=== PATIENT | female | born 1960 | race Caucasian/White ===

== ENCOUNTER 2018-01-23 21:00 | Emergency (ER) | payer OTHER ==
--- NOTE | 2018-01-23 21:14 | ERPHSYRPT ---
- History of Present Illness Time Seen by Provider: 01/23/18 21:13 Source: patient, family Exam Limitations: no limitations Physician History: 57 y/o white female was sitting a chair at cabinet level cleaning her cabinets and fell off her chair and injured left elbow. denies head injury or any other injury. pt is right handed. 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 21:20) Anaphylactic Reaction pt states she is allergic to all steroids Home Medications: Alprazolam 0.5 mg [xanAX 0.5 MG] 0.5 mg PO DAILY 01/23/18 [History] Aspirin 81 gm Chew [Baby Aspirin 81 mg Chew] 81 mg PO DAILY 01/23/18 [ History] Citalopram Hydrobromide 20 mg* [ceLEXa 20 MG] 20 mg PO DAILY 01/23/18 [ History] Fenofibrate Nanocrystallized [Fenofibrate] 145 mg PO DAILY 01/23/18 [History] Levothyroxine Sodium 112 mcg PO DAILY 01/23/18 [History] Loratadine 10 mg PO DAILY 01/23/18 [History] Metformin HCl Xr 500 mg [Glucophage XR 500 MG] 500 mg PO DAILY 01/23/18 [ History] Omeprazole 20 mg PO DAILY 01/23/18 [History] Pravastatin Sodium 20 mg PO DAILY 01/23/18 [History] - Review of Systems Constitutional: No Symptoms, No Fever, No Chills Eyes: No Symptoms, No Discharge, No Eye Pain Ears, Nose, & Throat: No Symptoms, No Ear Pain Respiratory: No Symptoms, No Cough, No Dyspnea, No Stridor, No Wheezing Cardiac: No Symptoms, No Chest Pain, No Palpitations, No Syncope Abdominal/Gastrointestinal: No Symptoms, No Abdominal Pain, No Nausea, No Vomiting Genitourinary Symptoms: No Symptoms, No Dysuria, No Frequency, No Hematuria Musculoskeletal: Injury (left elbow), No Back Pain, No Neck Pain, No Deformity, No Fall Skin: No Symptoms Neurological: No Symptoms Psychological: No Symptoms Endocrine: No Symptoms Hematologic/Lymphatic: No Symptoms Immunological/Allergic: No Symptoms All Other Systems: Reviewed and Negative - Past Medical History Neurological History: No Pertinent History ENT History: No Pertinent History Cardiac History: No Pertinent History Respiratory History: No Pertinent History Endocrine Medical History: No Pertinent History Musculoskeletal History: No Pertinent History GI Medical History: No Pertinent History History: No Pertinent History Psycho-Social History: No Pertinent History Female Reproductive Disorders: No Pertinent History - Nursing Vital Signs Nursing Vital Signs: Initial Vital Signs Temperature 97.5 F 01/23/18 21:07 Pulse Rate 96 H 01/23/18 21:07 Respiratory Rate 18 01/23/18 21:07 Blood Pressure 139/77 01/23/18 21:07 O2 Sat by Pulse Oximetry 96 01/23/18 21:07 Pain Scale Pain Intensity 10 - Paz Coma Score Best Eye Response ([place]): (4) open spontaneously Best Verbal Response ([place]): (5) oriented Best Motor Response ([place]): (6) obeys commands Paz Total: 15 - Physical Exam General Appearance: no apparent distress, alert, anxiety Head Injury: no evidence of injury Eye Exam: PERRL/EOMI, eyes nml inspection ENT Exam: airway nml, No evidence of ENT injury, No dental injury Neck Exam: supple, trachea midline, full range of motion, normal alignment, normal inspection Respiratory/Chest Exam: normal breath sounds, No chest tenderness, No respiratory distress, No rhonchi, No wheezing, No accessory muscle use Cardiovascular Exam: normal heart sounds, regular rate/rhythm Gastrointestinal Exam: soft, No tenderness Rectal Exam: not done Back Exam: normal inspection, normal range of motion Extremity Exam: normal inspection, normal range of motion, bony point tenderness (left elbow) Neurologic Exam: alert, oriented x 3, cooperative, 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 as tested, normal mood/affect, nml cerebellar function, nml station & gait Skin Exam: normal color, warm, dry SpO2 Interpretation: normal Oxygen Delivery: Room Air - Course Nursing assessment & vital signs reviewed: Yes Ordered Tests: Active Orders 24 hr Category Date Time Status Cold Application STAT Care 01/23/18 21:06 Active ELBOW (MINIMUM 3 VIEWS) Stat Exams 01/23/18 21:37 Taken Lab/Rad Data: i read left elbow xray- no acute fx or dislocation - Progress Counseled pt/family regarding: diagnosis, need for follow-up, rad results - Departure Time of Disposition: 22:19 Departure Disposition: Home Clinical Impression: Elbow contusion Condition: Stable Critical Care Time: No Referrals: ESTEVAN ZURITA [Primary Care Provider] - Additional Instructions: ice pack to site 3 times daily for 3 days. use tylenol and ibuprofen for pain. follow up with primary doctor for persistent symptoms
[2018-01-23 22:30] VITALS: BP 128/66; PULSE 79; O2SAT 95
--- NOTE | 2018-01-24 08:35 | XRAY ---
Indication: Pain following fall. Comparison: None 3 views of the left elbow demonstrates mild posterior soft tissue swelling. No other bony, articular, or soft tissue abnormalities.
== END 2018-01-23 22:29 | disposition home or self-care (01) ==
LOC: ED 21:00
DX: S50.02XA Contusion of left elbow, initial encounter (principal); Z79.899 Other long term (current) drug therapy; W07.XXXA Fall from chair, initial encounter; Y93.E9 Activity, other interior property and clothing maintenance; Y92.009 Unspecified place in unspecified non-institutional (private) residence as the place of occurrence of the external cause
CPT/HCPCS: 73080; 99283

== ENCOUNTER 2020-08-03 14:54 | Emergency (ER) | payer OTHER ==
--- NOTE | 2020-08-03 15:11 | ERPHSYRPT ---
- History of Present Illness Time Seen by Provider: 08/03/20 15:11 Source: patient Exam Limitations: no limitations Patient Subjective Stated Complaint: pt here for foot pain since last night,no injury Triage Nursing Assessment: pt alert, arrived per wc, face mask in place,resp easy, skin w/d/p. has some swelling to right outer aspect of foot ,has strong pedal pulse, full range of motion Physician History: This is a 60-year-old white female who has a history of gastroesophageal reflux disease, diabetes, hypothyroidism and noticed that she was having some pain in her right foot and right ankle yesterday evening. When she woke up this morning there was "bruising" and swelling of her right foot and ankle. In addition, she states that the pain was worse than yesterday and was having trouble walking. She did not recall falling or injuring herself. The patient has no bleeding or clotting disorder. Patient states she is allergic to all steroids. Method of Injury: unknown Quality: aching Severity of Pain-Max: moderate Severity of Pain-Current: mild Lower Extremities Pain: foot: right, ankle: right Modifying Factors: Improves With: movement Associated Symptoms: other (Hurts to bear weight but is able to do so) Allergies/Adverse Reactions: Androgenic Anabolic Steroid Allergy (Severe, Verified 08/03/20 15:05) Anaphylactic Reaction pt states she is allergic to all steroids Home Medications: Alprazolam 0.5 mg [xanAX 0.5 MG] 0.5 mg PO DAILY 01/23/18 [History] Aspirin 81 gm Chew [Baby Aspirin 81 mg Chew] 81 mg PO DAILY 01/23/18 [History] Citalopram Hydrobromide 20 mg* [ceLEXa 20 MG] 20 mg PO DAILY 01/23/18 [History] Fenofibrate Nanocrystallized [Fenofibrate] 145 mg PO DAILY 01/23/18 [History] Levothyroxine Sodium 112 mcg PO DAILY 01/23/18 [History] Loratadine 10 mg PO DAILY 01/23/18 [History] Metformin HCl Xr 500 mg [Glucophage XR 500 MG] 500 mg PO DAILY 01/23/18 [History] Omeprazole 20 mg PO DAILY 01/23/18 [History] Pravastatin Sodium 20 mg PO DAILY 01/23/18 [History] Hx Tetanus, Diphtheria Vaccination/Date Given: Yes Hx Influenza Vaccination/Date Given: Yes Hx Pneumococcal Vaccination/Date Given: Yes Immunizations Up to Date: Yes Travel Risk - International Travel Have you traveled outside of the country in past 3 weeks: No - Coronavirus Screening Are you exhibiting any of the following symptoms?: No Close contact with a COVID-19 positive Pt in past 14-21 Days: No - Review of Systems Constitutional: No Symptoms Eyes: No Symptoms Ears, Nose, & Throat: No Symptoms Respiratory: No Symptoms Cardiac: No Symptoms Abdominal/Gastrointestinal: No Symptoms Genitourinary Symptoms: No Symptoms Musculoskeletal: Joint Pain (Right foot and ankle), Joint Swelling (Right foot and ankle) Skin: Other Neurological: No Symptoms Psychological: No Symptoms Endocrine: No Symptoms Hematologic/Lymphatic: No Symptoms Immunological/Allergic: No Symptoms All Other Systems: Reviewed and Negative - Past Medical History Pertinent Past Medical History: Yes Neurological History: No Pertinent History ENT History: No Pertinent History Cardiac History: No Pertinent History Respiratory History: COPD Endocrine Medical History: No Pertinent History Musculoskeletal History: No Pertinent History GI Medical History: Ulcer History: No Pertinent History Psycho-Social History: No Pertinent History Female Reproductive Disorders: No Pertinent History - Past Surgical History Past Surgical History: Yes Gastrointestinal: Cholecystectomy Female Surgical History: Tubal Ligation Other Surgical History: oral surgery as a child - Social History Smoking Status: Current every day smoker How long have you smoked: 34 Exposure to second hand smoke: Yes Drug Use: none Patient Lives Alone: No - Female History Hx Last Menstrual Period: post Hx Now: No - Nursing Vital Signs Nursing Vital Signs: Initial Vital Signs Temperature 98.5 F 08/03/20 14:54 Pulse Rate 78 08/03/20 14:54 Respiratory Rate 18 08/03/20 14:54 Blood Pressure 174/71 08/03/20 14:54 O2 Sat by Pulse Oximetry 96 08/03/20 14:54 Pain Scale Pain Intensity 5 - Physical Exam General Appearance: no apparent distress, alert, anxiety Eyes, Ears, Nose, Throat Exam: normal ENT inspection, moist mucous membranes Neck Exam: normal inspection, non-tender, supple, full range of motion Cardiovascular/Respiratory Exam: chest non-tender, no respiratory distress Gastrointestinal/Abdominal Exam: non-tender Back Exam: normal inspection, normal range of motion, No CVA tenderness, No vertebral tenderness Hips Exam: bilateral: non-tender, normal inspection, normal range of motion, no evidence of injury Legs Exam: bilateral leg: non-tender, normal inspection, normal range of motion, no evidence of injury Knees Exam: bilateral knee: non-tender, normal inspection, normal range of motion, no evidence of injury Ankle Exam: right ankle: bone tenderness, pain, soft tissue tenderness, swelling, other (A few irregularly bordered reddened more than purple patches of rash rather than typical ecchymosis present), left ankle: non-tender, normal inspection, normal range of motion, no evidence of injury Foot Exam: right foot: bone tenderness, pain, soft tissue tenderness, swelling, other (Similar patches of rash as described above on the Achilles tendon area and dorsal aspect of the patient's right foot), left foot: non-tender, normal inspection, normal range of motion, no evidence of injury Neuro/Tendon Exam: normal sensation, normal motor functions, normal tendon functions, responds to pain, no evidence tendon injury Mental Status Exam: alert, oriented x 3, cooperative Skin Exam: rash (As described above) SpO2 Interpretation: normal SpO2: 96 O2 Delivery: Room Air Ordered Tests: Active Orders 24 hr Category Date Time Status ANKLE (3 VIEWS) Stat Exams 08/03/20 15:12 Taken FOOT (MINIMUM 3 VIEWS) Stat Exams 08/03/20 15:12 Taken CBC W DIFF Stat Lab 08/03/20 15:59 Completed CMP Stat Lab 08/03/20 15:59 Completed ESR [Erythrocyte Sedimentation Rate] Stat Lab 08/03/20 16:00 Completed PROTIME WITH INR Stat Lab 08/03/20 15:59 Completed Lab/Rad Data: Laboratory Result Diagrams 08/03/20 15:59 08/03/20 15:59 Laboratory Results 08/03/20 08/03/20 08/03/20 Range/Units 16:00 15:59 15:59 WBC (4.0-10.5) K/mm3 RBC (4.1-5.4) M/mm3 Hgb (12.0-16.0) gm/dl Hct (35-47) % MCV (78-100) fl MCH (26-32) pg MCHC (32-36) g/dl RDW (11.5-14.0) % Plt Count (150-450) K/mm3 MPV (7.5-11.0) fl Gran % (36.0-66.0) % Eos # (Auto) (0-0.5) Absolute Lymphs (auto) (1.0-4.6) Absolute Monos (auto) (0.0-1.3) Lymphocytes % (24.0-44.0) % Monocytes % (0.0-12.0) % Eosinophils % (0.00-5.0) % Basophils % (0.0-0.4) % Absolute Granulocytes (1.4-6.9) Basophils # (0-0.4) ESR 31 H (0-20) mm/hr PT 14.2 H (9.95-12.35) SECONDS INR 1.25 (0.8-3.0) Sodium 137 (137-145) mmol/L Potassium 4.4 (3.5-5.1) mmol/L Chloride 105 (98-107) mmol/L Carbon Dioxide 27 (22-30) mmol/L Anion Gap 9.0 (5-15) MEQ/L BUN 7 (7-17) mg/dL Creatinine 0.67 (0.52-1.04) mg/dL Estimated GFR > 60.0 ML/MIN Glucose 77 (74-106) mg/dL Calcium 9.3 (8.4-10.2) mg/dL Total Bilirubin 0.40 (0.2-1.3) mg/dL AST 85 H (14-36) U/L ALT 31 (0-35) U/L Alkaline Phosphatase 134 H (38-126) U/L Serum Total Protein 8.0 (6.3-8.2) g/dL Albumin 4.4 (3.5-5.0) g/dL 08/03/20 Range/Units 15:59 WBC 8.6 (4.0-10.5) K/mm3 RBC 4.68 (4.1-5.4) M/mm3 Hgb 13.5 (12.0-16.0) gm/dl Hct 42.9 (35-47) % MCV 91.7 (78-100) fl MCH 28.8 (26-32) pg MCHC 31.5 L (32-36) g/dl RDW 13.7 (11.5-14.0) % Plt Count 221 (150-450) K/mm3 MPV 8.6 (7.5-11.0) fl Gran % 55.2 (36.0-66.0) % Eos # (Auto) 0.63 H (0-0.5) Absolute Lymphs (auto) 2.73 (1.0-4.6) Absolute Monos (auto) 0.48 (0.0-1.3) Lymphocytes % 31.6 (24.0-44.0) % Monocytes % 5.6 (0.0-12.0) % Eosinophils % 7.3 H (0.00-5.0) % Basophils % 0.3 (0.0-0.4) % Absolute Granulocytes 4.77 (1.4-6.9) Basophils # 0.03 (0-0.4) ESR (0-20) mm/hr PT (9.95-12.35) SECONDS INR (0.8-3.0) Sodium (137-145) mmol/L Potassium (3.5-5.1) mmol/L Chloride (98-107) mmol/L Carbon Dioxide (22-30) mmol/L Anion Gap (5-15) MEQ/L BUN (7-17) mg/dL Creatinine (0.52-1.04) mg/dL Estimated GFR ML/MIN Glucose (74-106) mg/dL Calcium (8.4-10.2) mg/dL Total Bilirubin (0.2-1.3) mg/dL AST (14-36) U/L ALT (0-35) U/L Alkaline Phosphatase (38-126) U/L Serum Total Protein (6.3-8.2) g/dL Albumin (3.5-5.0) g/dL - Progress Progress: pain not gone completely, re-examined Progress Note: 08/03/20 16:46 X-ray of the right foot reveals no acute fracture or dislocation X-ray of the right ankle reveals no acute fracture or dislocation. Counseled pt/family regarding: lab results, diagnosis, need for follow-up, rad results - Departure Departure Disposition: Home Clinical Impression: Pain in joint involving right ankle and foot Condition: Stable Critical Care Time: No Referrals: ESTEVAN ZURITA [Primary Care Provider] - Additional Instructions: Take your medications as prescribed. Use ibuprofen for pain control. Follow-up with Dr. Bundy in the foot clinic here at [facility] for further management. Ice pack to area 2-3 times a day over the weekend.
[2020-08-03 16:15] LABS: Absolute Neutrophil Ct (ANC) 4.77 (1.4-6.9); BASOPHIL % 0.3 % (0.0-0.4); Basophil (Absolute #) 0.03 (0-0.4); Eosinophil % 7.3 % (0.00-5.0); Eosinophil (Absolute #) 0.63 (0-0.5); Hematocrit 42.9 % (35-47); Hemoglobin 13.5 gm/dl (12.0-16.0); Lymphocyte (Absolute #) 2.73 (1.0-4.6); Lymphocytes % 31.6 % (24.0-44.0); Mean Cell Volume 91.7 fl (78-100); Mean Corpuscular Hemoglobin 28.8 pg (26-32); Mean Corpuscular Hgb Concent. 31.5 g/dl (32-36); Mean Platelet Volume 8.6 fl (7.5-11.0); Monocyte (Absolute #) 0.48 (0.0-1.3); Monocytes % 5.6 % (0.0-12.0); Neutrophil % 55.2 % (36.0-66.0); Platelet Count 221 K/mm3 (150-450); Red Blood Count 4.68 M/mm3 (4.1-5.4); Red Cell Distribution Width 13.7 % (11.5-14.0); White Blood Count 8.6 K/mm3 (4.0-10.5)
[2020-08-03 16:28] LABS: INR 1.25 (0.8-3.0); PROTIME 14.2 SECONDS (9.95-12.35)
[2020-08-03 16:33] LABS: ALBUMIN 4.4 g/dL (3.5-5.0); ALKALINE PHOSPHATASE 134 U/L (38-126); BLOOD UREA NITROGEN 7 mg/dL (7-17); CHLORIDE 105 mmol/L (98-107); Calcium 9.3 mg/dL (8.4-10.2); Carbon Dioxide 27 mmol/L (22-30); Creatinine 1 0.67 mg/dL (0.52-1.04); EST GLOMERULAR FILTRATION RATE > 60.0 ML/MIN; Glucose 77 mg/dL (74-106); Potassium 4.4 mmol/L (3.5-5.1); SGOT/AST 85 U/L (14-36); SGPT/ALT 31 U/L (0-35); SODIUM 137 mmol/L (137-145)
[2020-08-03] MEDS ORDERED: TORAdol 30 mg Injection IM ONE (16:48)
[2020-08-03] MEDS ORDERED: TORAdol 30 mg Injection ONE (17:14)
[2020-08-03 17:42] VITALS: BP 158/88; PULSE 72; O2SAT 97
--- NOTE | 2020-08-03 18:42 | XRAY ---
Indication: Pain. No known injury. Comparison: None 3 nonweightbearing views right foot demonstrates tiny posterior heel spur. No other bony, articular, or soft tissue abnormalities.
--- NOTE | 2020-08-03 18:44 | XRAY ---
Indication: Pain. No known injury. Comparison: None 3 view right ankle demonstrates tiny medial malleolus tip well-circumscribed ossification either developmental versus old injury. Also tiny posterior heel spur. No other bony, articular, or soft tissue abnormalities.
== END 2020-08-03 17:30 | disposition home or self-care (01) ==
LOC: ED 14:54
DX: M25.571 Pain in right ankle and joints of right foot (principal); K21.9 Gastro-esophageal reflux disease without esophagitis; E11.9 Type 2 diabetes mellitus without complications; E03.9 Hypothyroidism, unspecified; Z79.899 Other long term (current) drug therapy; Z79.84 Long term (current) use of oral hypoglycemic drugs; M25.471 Effusion, right ankle
CPT/HCPCS: 36415; 73610; 73630; 80053; 85025; 85610; 85652; 96372; 99284; J1885

== ENCOUNTER 2021-05-13 10:05 | Inpatient (IN) | payer OTHER ==
[2021-05-13] MEDS ORDERED: Zofran 4 MG/2 ML VIAL IV ONE (10:40)
[2021-05-13] MEDS ORDERED: Sodium Chloride 0.9% 1000 ML 1,000 ML IV STA (10:40)
--- NOTE | 2021-05-13 10:49 | ERPHSYRPT ---
- History of Present Illness Time Seen by Provider: 05/13/21 10:38 Historian: patient Exam Limitations: no limitations Patient Subjective Stated Complaint: Pt states that for the past week she has been dizzy, N&V, diarrhea, body fatigue, and headache Triage Nursing Assessment: Pt brought to the ER by her daughter, hypertensive, denies pain, N&V, diarrhea, headache, cough with whitish/yellow mucus, dizzy, felt like she was going to pass out this morning, skin pale, pulses normal Physician History: 60 years old female presented in the ER with multiple complaints. Patient reports having sinus congestion for almost 1 week with minimal clear productive cough not much change from her chronic smoker cough and having generalized abdominal cramping with associated multiple episodes of loose stool. Does have some nausea but no vomiting. Patient is feeling weak fatigued and tired, getting dizzy and lightheaded on standing with feeling as if she is going to pass out earlier today. No numbness tingling or weakness. Subjective feeling of fever and chills Timing/Duration: week(s) (1), gradual onset, worse Activities at Onset: rest Quality: cramping Abdominal Pain Onset Location: generalized abdomen Pain Radiation: no radiation Severity of Pain-Max: moderate Severity of Pain-Current: mild Modifying Factors: Improves With: nothing Associated Symptoms: diarrhea, fatigue, headache, nausea, weakness, No shortness of breath Allergies/Adverse Reactions: Androgenic Anabolic Steroid Allergy (Severe, Verified 05/13/21 10:20) Anaphylactic Reaction pt states she is allergic to all steroids Home Medications: ALPRAZolam 0.5 MG [xanAX 0.5 MG] 0.5 mg PO DAILY 01/23/18 [History] Aspirin 81 gm Chew [Baby Aspirin 81 mg Chew] 81 mg PO DAILY 01/23/18 [History] Citalopram Hydrobromide 20 mg* [ceLEXa 20 MG] 20 mg PO DAILY 01/23/18 [History] Fenofibrate Nanocrystallized [Fenofibrate] 145 mg PO DAILY 01/23/18 [History] Levothyroxine Sodium 112 mcg PO DAILY 01/23/18 [History] Loratadine 10 mg PO DAILY 01/23/18 [History] Metformin HCl Xr 500 mg [Glucophage XR 500 MG] 500 mg PO DAILY 01/23/18 [History] Omeprazole 20 mg PO DAILY 01/23/18 [History] Pravastatin Sodium 20 mg PO DAILY 01/23/18 [History] Hx Tetanus, Diphtheria Vaccination/Date Given: Yes Hx Influenza Vaccination/Date Given: Yes Hx Pneumococcal Vaccination/Date Given: Yes Travel Risk - International Travel Have you traveled outside of the country in past 3 weeks: No - Coronavirus Screening Are you exhibiting any of the following symptoms?: Yes Symptoms: Cough: New Onset, Vomiting/Diarrhea, Headaches/Body Aches/Fatigue Close contact with a COVID-19 positive Pt in past 14-21 Days: No - Vaccine Status Have you recieved a Covid-19 vaccination: No - Review of Systems Constitutional: Fever, Chills, Fatigue, Weakness Eyes: No Symptoms Ears, Nose, & Throat: Nose Congestion, Sinus Drainage Respiratory: Cough Cardiac: No Symptoms Abdominal/Gastrointestinal: Abdominal Pain, Nausea, Diarrhea Genitourinary Symptoms: No Symptoms Musculoskeletal: Myalgias Skin: No Symptoms Neurological: Dizziness Psychological: No Symptoms Endocrine: No Symptoms Hematologic/Lymphatic: No Symptoms Immunological/Allergic: No Symptoms - Past Medical History Pertinent Past Medical History: Yes Neurological History: No Pertinent History ENT History: No Pertinent History Cardiac History: No Pertinent History Respiratory History: COPD Endocrine Medical History: No Pertinent History Musculoskeletal History: No Pertinent History GI Medical History: Ulcer History: No Pertinent History Psycho-Social History: No Pertinent History Female Reproductive Disorders: No Pertinent History - Past Surgical History Past Surgical History: Yes Gastrointestinal: Cholecystectomy Female Surgical History: Tubal Ligation Other Surgical History: oral surgery as a child - Social History Smoking Status: Current every day smoker How long have you smoked: 34 Exposure to second hand smoke: Yes Drug Use: none Patient Lives Alone: No - Female History Hx Now: No - Nursing Vital Signs Nursing Vital Signs: Initial Vital Signs Temperature 97.5 F 05/13/21 10:11 Pulse Rate 77 05/13/21 10:11 Blood Pressure 142/60 05/13/21 10:11 O2 Sat by Pulse Oximetry 100 05/13/21 10:11 Pain Scale Pain Intensity 0 - Physical Exam General Appearance: no apparent distress, alert Eye Exam: PERRL/EOMI, eyes nml inspection Ears, Nose, Throat Exam: TMs normal, pharyngeal erythema Neck Exam: normal inspection, supple, full range of motion Respiratory Exam: normal breath sounds, lungs clear Cardiovascular Exam: regular rate/rhythm, normal heart sounds Gastrointestinal/Abdomen Exam: soft, tenderness (Generalized mild with no guarding or rebound), No normal bowel sounds (Hyperactive) Back Exam: normal inspection, normal range of motion, No CVA tenderness Extremity Exam: normal inspection, normal range of motion Skin Exam: normal color SpO2 Interpretation: normal SpO2: 100 O2 Delivery: Room Air - Course EKG Interpreted by Me: RATE (77), Sinus Rhythm, NORMAL AXIS, NORMAL INTERVALS, Other (Mild ST depression in anterolateral) Ordered Tests: Active Orders 24 hr Category Date Time Status Label Machine Operator STAT Care 05/13/21 11:48 Active IV Insertion STAT Care 05/13/21 10:40 Active NPO (ED) STAT Care 05/13/21 10:40 Active ABDOMEN AND PELVIS W/0 CONTRAS [CT] Stat Exams 05/13/21 10:40 Completed CHEST 1 VIEW (PORTABLE) Stat Exams 05/13/21 10:45 Completed BLOOD CULTURE Stat Lab 05/13/21 11:02 Received CBC W DIFF Stat Lab 05/13/21 11:02 Completed CMP Stat Lab 05/13/21 11:02 Completed CULTURE,URINE Stat Lab 05/13/21 11:33 Received FECAL OCCULT BLOOD - SCREENING Stat Lab 05/13/21 11:48 Ordered LIPASE Stat Lab 05/13/21 11:02 Completed Lactic Acid Stat Lab 05/13/21 11:16 Completed Lactic Acid Stat Lab 05/13/21 13:20 Completed Manual Differential NC Stat Lab 05/13/21 11:02 Completed TROPONIN Q3H Lab 05/13/21 11:02 Completed TROPONIN Q3H Lab 05/13/21 13:41 Received TROPONIN Q3H Lab 05/13/21 16:45 Ordered TROPONIN Q3H Lab 05/13/21 19:45 Ordered TROPONIN Q3H Lab 05/13/21 22:45 Ordered UA W/RFX UR CULTURE Stat Lab 05/13/21 11:33 Completed Transfer Order Routine Transfer 05/13/21 Ordered Medication Summary Generic Name Dose Route Start Last Admin Trade Name Freq PRN Reason Stop Dose Admin Pantoprazole Sodium 80 mg/ 500 mls @ 50 mls/hr 05/13/21 12:00 05/13/21 12:38 Sodium Chloride IV 06/12/21 11:59 50 ml/hr .Q10H JEANCARLOS 50 mls/hr Administration Discontinued Medications Generic Name Dose Route Start Last Admin Trade Name Iman PRN Reason Stop Dose Admin Sodium Chloride 1,000 mls @ 999 mls/hr 05/13/21 10:40 05/13/21 12:37 Sodium Chloride 0.9% 1000 Ml IV 05/13/21 11:40 Infused .Q1H1M STA Infusion Sodium Chloride Confirm 05/13/21 11:31 Sodium Chloride 0.9% 1000 Ml Administered 05/13/21 11:32 Dose 1,000 mls @ ud .ROUTE .STK-MED ONE Ondansetron HCl 4 mg 05/13/21 10:40 05/13/21 11:33 Ondansetron Hcl 4 Mg/2 Ml Vial IV 05/13/21 10:41 4 mg STAT ONE Administration Ondansetron HCl Confirm 05/13/21 11:30 Ondansetron Hcl 4 Mg/2 Ml Vial Administered 05/13/21 11:31 Dose 4 mg .ROUTE .STK-MED ONE Pantoprazole Sodium 40 mg 05/13/21 11:47 05/13/21 12:34 Pantoprazole 40 Mg Vial IV 05/13/21 11:48 40 mg STAT ONE Administration Pantoprazole Sodium Confirm 05/13/21 12:32 Pantoprazole 40 Mg Vial Administered 05/13/21 12:33 Dose 40 mg IV .STK-MED ONE Lab/Rad Data: Laboratory Result Diagrams 05/13/21 11:02 05/13/21 11:02 Laboratory Results 05/13/21 05/13/21 05/13/21 Range/Units 13:20 12:37 11:33 WBC (4.0-10.5) K/mm3 RBC (4.1-5.4) M/mm3 Hgb (12.0-16.0) gm/dl Hct (35-47) % MCV (78-100) fl MCH (26-32) pg MCHC (32-36) g/dl RDW (11.5-14.0) % Plt Count (150-450) K/mm3 MPV (7.5-11.0) fl Sodium (137-145) mmol/L Potassium (3.5-5.1) mmol/L Chloride (98-107) mmol/L Carbon Dioxide (22-30) mmol/L Anion Gap (5-15) MEQ/L BUN (7-17) mg/dL Creatinine (0.52-1.04) mg/dL Estimated GFR ML/MIN Glucose (74-106) mg/dL Lactic Acid 1.1 (0.4-2.0) Calcium (8.4-10.2) mg/dL Total Bilirubin (0.2-1.3) mg/dL AST (14-36) U/L ALT (0-35) U/L Alkaline Phosphatase (38-126) U/L Troponin I (0.000-0.034) ng/mL Serum Total Protein (6.3-8.2) g/dL Albumin (3.5-5.0) g/dL Lipase (23-300) U/L Urine Color GRACE (YELLOW) Urine Appearance SLIGHTLY CLOUDY (CLEAR) Urine pH 5.0 (5-6) Ur Specific Porter 1.021 (1.005-1.025) Urine Protein 30 (Negative) Urine Ketones NEGATIVE (NEGATIVE) Urine Blood NEGATIVE (0-5) Power/ul Urine Nitrite NEGATIVE (NEGATIVE) Urine Bilirubin SMALL (NEGATIVE) Urine Urobilinogen 4 (0-1) mg/dL Ur Leukocyte Esterase TRACE (NEGATIVE) Urine WBC (Auto) 11-15 (0-5) /HPF Urine RBC (Auto) NONE (0-2) /HPF U Hyaline Cast (Auto) 3-5 (0-2) /LPF U Epithel Cells (Auto) FEW (FEW) /HPF Urine Bacteria (Auto) FEW (NEGATIVE) /HPF Calcium Oxalate Crystal 6-10 (NEGATIVE) /HPF Urine Mucus (Auto) MANY (NEGATIVE) /HPF Urine Culture Reflexed YES (NO) Urine Glucose NEGATIVE (NEGATIVE) mg/dL Influenza Type A Ag NEGATIVE (NEGATIVE) Influenza Type B Ag NEGATIVE (NEGATIVE) RSV (PCR) NEGATIVE (Negative) SARS-CoV-2 (PCR) POSITIVE A (NEGATIVE) 05/13/21 05/13/21 05/13/21 Range/Units 11:16 11:02 11:02 WBC (4.0-10.5) K/mm3 RBC (4.1-5.4) M/mm3 Hgb (12.0-16.0) gm/dl Hct (35-47) % MCV (78-100) fl MCH (26-32) pg MCHC (32-36) g/dl RDW (11.5-14.0) % Plt Count (150-450) K/mm3 MPV (7.5-11.0) fl Sodium 139 (137-145) mmol/L Potassium 3.5 (3.5-5.1) mmol/L Chloride 105 (98-107) mmol/L Carbon Dioxide 23 (22-30) mmol/L Anion Gap 15.2 H (5-15) MEQ/L BUN 5 L (7-17) mg/dL Creatinine 0.67 (0.52-1.04) mg/dL Estimated GFR > 60.0 ML/MIN Glucose 130 H (74-106) mg/dL Lactic Acid 3.2 H (0.4-2.0) Calcium 8.4 (8.4-10.2) mg/dL Total Bilirubin 1.10 (0.2-1.3) mg/dL AST 45 H (14-36) U/L ALT 13 (0-35) U/L Alkaline Phosphatase 118 (38-126) U/L Troponin I < 0.012 (0.000-0.034) ng/mL Serum Total Protein 7.6 (6.3-8.2) g/dL Albumin 3.9 (3.5-5.0) g/dL Lipase 95 (23-300) U/L Urine Color (YELLOW) Urine Appearance (CLEAR) Urine pH (5-6) Ur Specific Porter (1.005-1.025) Urine Protein (Negative) Urine Ketones (NEGATIVE) Urine Blood (0-5) Power/ul Urine Nitrite (NEGATIVE) Urine Bilirubin (NEGATIVE) Urine Urobilinogen (0-1) mg/dL Ur Leukocyte Esterase (NEGATIVE) Urine WBC (Auto) (0-5) /HPF Urine RBC (Auto) (0-2) /HPF U Hyaline Cast (Auto) (0-2) /LPF U Epithel Cells (Auto) (FEW) /HPF Urine Bacteria (Auto) (NEGATIVE) /HPF Calcium Oxalate Crystal (NEGATIVE) /HPF Urine Mucus (Auto) (NEGATIVE) /HPF Urine Culture Reflexed (NO) Urine Glucose (NEGATIVE) mg/dL Influenza Type A Ag (NEGATIVE) Influenza Type B Ag (NEGATIVE) RSV (PCR) (Negative) SARS-CoV-2 (PCR) (NEGATIVE) 05/13/21 Range/Units 11:02 WBC 6.3 (4.0-10.5) K/mm3 RBC 3.69 L (4.1-5.4) M/mm3 Hgb 6.0 L* (12.0-16.0) gm/dl Hct 24.1 L (35-47) % MCV 65.3 L (78-100) fl MCH 16.3 L (26-32) pg MCHC 24.9 L (32-36) g/dl RDW 20.1 H (11.5-14.0) % Plt Count 289 (150-450) K/mm3 MPV 9.5 (7.5-11.0) fl Sodium (137-145) mmol/L Potassium (3.5-5.1) mmol/L Chloride (98-107) mmol/L Carbon Dioxide (22-30) mmol/L Anion Gap (5-15) MEQ/L BUN (7-17) mg/dL Creatinine (0.52-1.04) mg/dL Estimated GFR ML/MIN Glucose (74-106) mg/dL Lactic Acid (0.4-2.0) Calcium (8.4-10.2) mg/dL Total Bilirubin (0.2-1.3) mg/dL AST (14-36) U/L ALT (0-35) U/L Alkaline Phosphatase (38-126) U/L Troponin I (0.000-0.034) ng/mL Serum Total Protein (6.3-8.2) g/dL Albumin (3.5-5.0) g/dL Lipase (23-300) U/L Urine Color (YELLOW) Urine Appearance (CLEAR) Urine pH (5-6) Ur Specific Porter (1.005-1.025) Urine Protein (Negative) Urine Ketones (NEGATIVE) Urine Blood (0-5) Power/ul Urine Nitrite (NEGATIVE) Urine Bilirubin (NEGATIVE) Urine Urobilinogen (0-1) mg/dL Ur Leukocyte Esterase (NEGATIVE) Urine WBC (Auto) (0-5) /HPF Urine RBC (Auto) (0-2) /HPF U Hyaline Cast (Auto) (0-2) /LPF U Epithel Cells (Auto) (FEW) /HPF Urine Bacteria (Auto) (NEGATIVE) /HPF Calcium Oxalate Crystal (NEGATIVE) /HPF Urine Mucus (Auto) (NEGATIVE) /HPF Urine Culture Reflexed (NO) Urine Glucose (NEGATIVE) mg/dL Influenza Type A Ag (NEGATIVE) Influenza Type B Ag (NEGATIVE) RSV (PCR) (Negative) SARS-CoV-2 (PCR) (NEGATIVE) - Progress Progress: improved, re-examined Progress Note: 05/13/21 12:24 60 years old is evaluated for generalized weakness fatigue, sinus congestion, cough, abdominal pain with diarrhea. Later on patient did report having dark stool which she thinks is probably secondary to Pepto-Bismol use. Denies any allison blood per rectal. No hematemesis. Heart rate in 80s and blood pressure in 130s. She does not seem to be in any distress. Work-up showed hemoglobin of 6 with a drop from baseline 13. Stool occult is pending. Chemistry lactate of 3.2 and normal initial troponin. EKG showed some ST depressions but no elevations. I believe her dizziness, lightheadedness and near syncope and also EKG changes are secondary to blood loss anemia causing strain. I have discussed with patient in detail about the risk and benefits of transfusion and she wants to go ahead with transfusion. We will type and crossmatch 2 units and transfused with 20 of Lasix in between [address] Zurita who recommended consulting general surgery for emergent scope and if general surgery is okay patient would be admitted. I have discussed with Dr. Cassandra Hinojosa, reviewed history, work-up, agreed with transfusion and patient would be taken to endoscopy later today sometime. I have discussed with anesthesia Steve as well and he is available. Plan discussed with patient to understand and agrees with it. 05/13/21 13:59 Patient has COVID-19 positive but not in any distress and maintaining oxygen saturation. I have discussed with Dr. Smith, reviewed history, work-up and surgery recommendations and patient is accepted for admission. Discussed with .: Ana Rosa Reeves Will see patient in: hospital (full admit) Counseled pt/family regarding: lab results, diagnosis, rad results - Departure Departure Disposition: In-patient Admission Clinical Impression: Acute blood loss anemia, GI bleed, COVID-19 virus detected Condition: Stable Critical Care Time: Yes Critical Care Time(excluding separately billable procedures): Critical 30-74 mins Referrals: ESTEVAN ZURITA [Primary Care Provider] - Follow up/PCP as directed
[2021-05-13 11:17] LABS: Hematocrit 24.1 % (35-47); Mean Cell Volume 65.3 fl (78-100); Mean Corpuscular Hemoglobin 16.3 pg (26-32); Mean Corpuscular Hgb Concent. 24.9 g/dl (32-36); Mean Platelet Volume 9.5 fl (7.5-11.0); Platelet Count 289 K/mm3 (150-450); Red Blood Count 3.69 M/mm3 (4.1-5.4); Red Cell Distribution Width 20.1 % (11.5-14.0); White Blood Count 6.3 K/mm3 (4.0-10.5)
[2021-05-13 11:27] LABS: ALBUMIN 3.9 g/dL (3.5-5.0); ALKALINE PHOSPHATASE 118 U/L (38-126); ANION GAP 15.2 MEQ/L (5-15); BLOOD UREA NITROGEN 5 mg/dL (7-17); CHLORIDE 105 mmol/L (98-107); Calcium 8.4 mg/dL (8.4-10.2); Carbon Dioxide 23 mmol/L (22-30); Creatinine 1 0.67 mg/dL (0.52-1.04); EST GLOMERULAR FILTRATION RATE > 60.0 ML/MIN; Glucose 130 mg/dL (74-106); LIPASE 95 U/L (23-300); Potassium 3.5 mmol/L (3.5-5.1); SGOT/AST 45 U/L (14-36); SGPT/ALT 13 U/L (0-35); SODIUM 139 mmol/L (137-145); Total Protein 7.6 g/dL (6.3-8.2)
[2021-05-13] MEDS ORDERED: Zofran 4 MG/2 ML VIAL ONE (11:30)
[2021-05-13] MEDS ORDERED: Sodium Chloride 0.9% 1000 ML 1,000 ML ONE ×2 (11:31→18:25)
--- NOTE | 2021-05-13 11:34 | XRAY ---
Indication: Diarrhea. Multiple contiguous axial images obtained through the abdomen and pelvis without contrast. Comparison: July 11, 2010. Lung bases demonstrates new bilateral peripheral patchy airspace disease. No effusion. Heart not enlarged. Noncontrasted stomach and bowel loops are nonobstructed. Appendix not seen. Mild fecal debris greatest in the ascending and transverse colon. New minimal sigmoid diverticulosis. Interval cholecystectomy. No free fluid/air. Again fatty liver. New 14 cm splenomegaly. Remaining liver, pancreas, spleen, adrenal glands, kidneys, ureters, bladder, and uterus are unremarkable for noncontrast exam. Worsening mild scattered aortoiliac calcifications without AAA. Osseous structures intact with minimal degenerative changes throughout the spine. Impression: 1. Lung bases demonstrates new incompletely visualized bilateral peripheral patchy airspace disease. R/O Covid 19 pneumonia. 2. Incidental fatty liver, splenomegaly, and sigmoid diverticulosis. 3. Remaining CT abdomen/pelvis without contrast exam is negative.
--- NOTE | 2021-05-13 11:34 | XRAY ---
Indication: Cough and diarrhea. Comparison: None Portable apical lordotic chest is clear. Heart not enlarged. Bony thorax intact with mild degenerative changes.
[2021-05-13] MEDS ORDERED: PROTONIX 40 MG IV IV ONE ×2 (11:47→12:32)
[2021-05-13] MEDS: PROTONIX 40 MG IV*** 80 MG in Sodium Chloride 0.9% 500 ML 500 ML IV SCH ×2 (12:38→23:24)
[2021-05-13 13:24] LABS: INFLUENZA A NEGATIVE (NEGATIVE); INFLUENZA B NEGATIVE (NEGATIVE); RESPIRATORY SYNCTIAL VIRUS NEGATIVE (Negative)
[2021-05-13 13:44] LABS: Appearance SLIGHTLY CLOUDY (CLEAR); Bacteria FEW /HPF (NEGATIVE); Bilirubin SMALL (NEGATIVE); Blood NEGATIVE Ery/ul (0-5); Epithelial Cells FEW /HPF (FEW); Glucose NEGATIVE (NEGATIVE); Ketones NEGATIVE (NEGATIVE); Leukocyte Esterase TRACE (NEGATIVE); Mucus MANY /HPF (NEGATIVE); Nitrite NEGATIVE (NEGATIVE); Protein,Urine Dip 30 (Negative); Specific Gravity 1.021 (1.005-1.025); Urobilinogen 4 mg/dL (0-1)
[2021-05-13 13:54] LABS: SARS-CoV-2 Xpert Express POSITIVE (NEGATIVE)
[2021-05-13 14:46] LABS: ABO TYPING O; RH TYPING POSITIVE
[2021-05-13 14:46] LABS: Lymphocytes 16 % (24-44); Monocyte 3 % (0.0-12.0); Neutrophils 81 % (36.0-66.0); Total Cells Counted 100
[2021-05-13 14:47] LABS: Hypochromia 3+; Platelet Estimate NORMAL (NORMAL); Polychromasia 1+
[2021-05-13 14:48] LABS: ANISOCYTOSIS 1+
[2021-05-13 14:56] LABS: Antibody Screen NEGATIVE (NEGATIVE); CROSS MATCH (PRBC) COMPATIBLE (COMPATIBLE)
--- NOTE | 2021-05-13 15:09 | HP ---
CHIEF COMPLAINT: Passing out. HISTORY OF PRESENT ILLNESS: A 60-year-old white female who apparently got up and was lightheaded and almost passed out, this was repetitively throughout the day so her daughter brought her in. She states she has not felt bad except for the lightheadedness. She had some dark stools. She thought it was from Pepto-Bismol. Interestingly, she did have GI bleed similar to this one year ago and she was scoped in [place] by a physician I do not know and supposedly he told her she has two ulcers in her colon and there was no follow up. She said she did receive blood products at that time. She does not take any NSAID, aspirin, alcohol or smoke. MEDICATIONS: None. ALLERGIES: ANDROGENIC ANABOLIC STEROID. REVIEW OF SYSTEMS: HEENT: Occasional migraines. CHEST: No shortness of breath. CVS: No exertional chest pain or palpitations. ABDOMEN: Some tenderness in the right lower quadrant, slightly obese. No masses. EXTREMITIES: Bilateral 1+ edema. Good pulses, very pale. PHYSICAL EXAMINATION: VITAL SIGNS: Temperature F, pulse , respirations HEENT: Pupils equal and reactive to light. NECK: Supple without adenopathy. CHEST: Clear. CVS: Regular rate. No murmurs or gallops. ABDOMEN: Soft. No masses or organomegaly. EXTREMITIES: Fair pulses. No edema. LAB DATA AND TESTS: Blood work - The patient's hemoglobin, the chart is not with me but I think it was about 5.9, macrocytic and hypochromic indices. COVID test done incidentally was positive. Chest x-ray does show minimal changes of COVID pneumonia. She has minimal cough. IMPRESSION: 1) Chronic lower GI bleed with severe iron deficiency anemia and syncope. 2) Early COVID pneumonia. PLAN: Surgical consultation, make NPO, add proton pump inhibitor, will go ahead and put her on some Remdesivir for COVID at this time. Avoid steroids of course. PROGNOSIS: Fair.
[2021-05-13] MEDS ORDERED: Lasix 20 MG/2 ML IV PRN (15:24)
[2021-05-13] MEDS ORDERED: REMDESIVIR 200 MG in Sodium Chloride 0.9% 250 ML 250 ML IV ONE (17:47)
[2021-05-13] MEDS ORDERED: DIPRIVAN 200 MG/20 ML IV ONE (18:09)
[2021-05-13] MEDS: Sodium Chloride 0.9% 1000 ML 1,000 ML IV SCH (19:53)
[2021-05-14] MEDS: PROTONIX 40 MG IV*** 80 MG in Sodium Chloride 0.9% 500 ML 500 ML IV SCH ×2 (01:08→11:11)
[2021-05-14 05:47] LABS: Absolute Neutrophil Ct (ANC) 3.07 (1.4-6.9); BASOPHIL % 0.4 % (0.0-0.4); Basophil (Absolute #) 0.02 (0-0.4); Eosinophil % 2.6 % (0.00-5.0); Eosinophil (Absolute #) 0.14 (0-0.5); Hematocrit 27.5 % (35-47); Hemoglobin 7.4 gm/dl (12.0-16.0); Lymphocyte (Absolute #) 1.77 (1.0-4.6); Lymphocytes % 32.7 % (24.0-44.0); Mean Cell Volume 71.2 fl (78-100); Mean Corpuscular Hemoglobin 19.2 pg (26-32); Mean Corpuscular Hgb Concent. 26.9 g/dl (32-36); Mean Platelet Volume 9.4 fl (7.5-11.0); Monocyte (Absolute #) 0.41 (0.0-1.3); Monocytes % 7.6 % (0.0-12.0); Neutrophil % 56.7 % (36.0-66.0); Platelet Count 255 K/mm3 (150-450); Red Blood Count 3.86 M/mm3 (4.1-5.4); Red Cell Distribution Width 23.3 % (11.5-14.0); White Blood Count 5.4 K/mm3 (4.0-10.5)
[2021-05-14 06:02] LABS: ALKALINE PHOSPHATASE 88 U/L (38-126); ANION GAP 10.9 MEQ/L (5-15); BLOOD UREA NITROGEN 6 mg/dL (7-17); CHLORIDE 112 mmol/L (98-107); Calcium 7.6 mg/dL (8.4-10.2); Carbon Dioxide 21 mmol/L (22-30); Creatinine 1 0.68 mg/dL (0.52-1.04); EST GLOMERULAR FILTRATION RATE > 60.0 ML/MIN; Glucose 90 mg/dL (74-106); Potassium 3.7 mmol/L (3.5-5.1); SGOT/AST 34 U/L (14-36); SGPT/ALT 10 U/L (0-35); SODIUM 140 mmol/L (137-145); Total Protein 6.2 g/dL (6.3-8.2)
[2021-05-14] MEDS: Sodium Chloride 0.9% 1000 ML 1,000 ML IV SCH ×2 (07:01→21:12)
[2021-05-14 07:52] LABS: Slide Review 1 YES
--- NOTE | 2021-05-14 07:55 | CONS ---
CONSULT DATE: 05/13/2021 HISTORY: A 60-year-old female has some hypertension, been dizzy, nausea and diarrhea. Supposedly, she had some dark stools, dizziness and weakness. She had a hemoglobin down to the 6 range considerably down from her past hemoglobin. She said Dr. Calvillo did a colonoscopy in the past. She had some ulcers in her colon years ago. PAST MEDICAL HISTORY: As mentioned above, she has some hypothyroidism, diabetes, hyperlipidemia and some reflux. She had ulcers in the past. Chronic obstructive pulmonary disease. PAST SURGICAL HISTORY: Cholecystectomy. Tubal ligation. HOME MEDICATIONS: Alprazolam, aspirin, citalopram, Fenofibrate, levothyroxine, loratadine, metformin, omeprazole, pravastatin. ALLERGIES: ANDROGENIC ANABOLIC STEROID. LATEX. NATURAL RUBBER. FAMILY HISTORY: Negative in regards to this specific problem. SOCIAL HISTORY: Smoker. No alcohol abuse. REVIEW OF SYSTEMS: Fourteen systems reviewed per admission assessment. Negative or noncontributory as above and per preadmission questionnaire. She was diagnosed as COVID positive. PHYSICAL EXAMINATION: GENERAL: No acute distress. HEENT: Sclera nonicteric. NECK: No JVD. CHEST: Equal excursion. CVS: Regular rhythm. ABDOMEN: Soft, nondistended. EXTREMITIES: No cyanosis. NEURO: Alert, moving extremities grossly symmetrically. PSYCH: Appropriate mood and affect. IMPRESSION: Weakness. She had some fatigue. There is a question whether she had some melena, question whether she has a GI source of this anemia. I feel she would benefit from upper endoscopy. Risks and benefits explained in detail including but not limited to bleeding or infection, risk of missed or nondiagnosis or inability to diagnose the etiology. She understands and agrees to the planned procedure, will proceed with EGD possible biopsy when OR time available.
--- NOTE | 2021-05-14 08:07 | OP ---
SURGERY DATE/TIME: 05/13/20211825 PREOPERATIVE DIAGNOSIS: Question of melena, past history of ulcers in the past, history of anemia, need for upper endoscopy. POSTOPERATIVE DIAGNOSES: 1) Mild gastric erythema, possible minimal gastritis. No signs of fresh or old blood in the proximal GI tract. 2) Mild esophageal erythema. PROCEDURES: 1) EGD with cold biopsy of the antrum to evaluate for Helicobacter pylori. 2) Cold biopsy distal esophagus to the gastroesophageal junction. SURGEON: Dr. Gibson Cheung. ANESTHESIA: MAC. ESTIMATED BLOOD LOSS: Minimal. INDICATIONS: As noted above. Risks and benefits explained in detail and not limited to and consent obtained. DESCRIPTION OF PROCEDURE AND FINDINGS: The patient is taken to the endoscopy room. MAC anesthesia introduced. After official time out and no disagreement with planned procedure, a bite block positioned. Video gastroscope easily passed through the esophagus through the patent pylorus to the third portion of the duodenum. Third, second and first portions of the duodenum grossly unremarkable. No signs of any fresh or old blood. No signs of any ulcers. The scope pulled back into the stomach. He had some mild gastric erythema. No signs of any ulcers, masses or mucosal lesions. No signs of any fresh or old blood. Cold biopsy taken in the antrum to evaluate for Helicobacter pylori. On retroflex, the gastroesophageal junction is fairly snug against the scope. There are no signs of any significant hiatal hernia. The scope is straightened and pulled back to the gastroesophageal junction. Z-line was fairly crisp. There was just a slight erythema on esophagus side. Cold biopsies taken. There was a minimal amount of oozing at that site. I watched a few seconds and appeared to have good hemostasis. Otherwise the remainder of the esophagus no signs of any masses, no signs of any active bleeding. The patient tolerated the procedure well. There were no immediate complications. I am not sure if he has any family here to discuss the findings with.
[2021-05-14 08:23] LABS: Hematocrit 27.9 % (35-47); Hemoglobin 7.8 gm/dl (12.0-16.0)
[2021-05-14] MEDS: REMDESIVIR 100 MG in Sodium Chloride 0.9% 100 ML BAG 100 ML IV SCH (11:00)
[2021-05-14] MEDS: FEOSOL 325 MG PO SCH ×2 (11:00→21:12)
[2021-05-15 06:05] LABS: Hematocrit 27.9 % (35-47); Hemoglobin 7.7 gm/dl (12.0-16.0); Mean Cell Volume 73.4 fl (78-100); Mean Corpuscular Hemoglobin 20.3 pg (26-32); Mean Corpuscular Hgb Concent. 27.6 g/dl (32-36); Mean Platelet Volume 9.6 fl (7.5-11.0); Platelet Count 245 K/mm3 (150-450); Red Cell Distribution Width 24.2 % (11.5-14.0); White Blood Count 5.8 K/mm3 (4.0-10.5)
[2021-05-15 06:53] LABS: ALKALINE PHOSPHATASE 91 U/L (38-126); ANION GAP 8.5 MEQ/L (5-15); BLOOD UREA NITROGEN 7 mg/dL (7-17); CHLORIDE 109 mmol/L (98-107); Calcium 7.7 mg/dL (8.4-10.2); Carbon Dioxide 25 mmol/L (22-30); Creatinine 1 0.73 mg/dL (0.52-1.04); EST GLOMERULAR FILTRATION RATE > 60.0 ML/MIN; Glucose 84 mg/dL (74-106); Potassium 3.5 mmol/L (3.5-5.1); SGOT/AST 33 U/L (14-36); SGPT/ALT 10 U/L (0-35); SODIUM 139 mmol/L (137-145); Total Protein 6.1 g/dL (6.3-8.2)
[2021-05-15 08:28] VITALS: BP 140/73; O2SAT 91
[2021-05-15] MEDS: FEOSOL 325 MG PO SCH (09:07)
[2021-05-15] MEDS: REMDESIVIR 100 MG in Sodium Chloride 0.9% 100 ML BAG 100 ML IV SCH (09:07)
[2021-05-15 09:51] VITALS: PULSE 87
[2021-05-15] MEDS ORDERED: Protonix 40MG Tablet PO SCH (10:00)
--- NOTE | 2021-05-15 11:34 | DS ---
ADMISSION DIAGNOSES: 1) COVID pneumonia. 2) GI bleed with severe iron deficiency anemia. DISCHARGE DIAGNOSES: 1) COVID PNEUMONIA. 2) GI BLEED WITH SEVERE IRON DEFICIENCY ANEMIA. HISTORY: The patient is a 60-year-old white female who over a year ago had severe anemia and a scope found to have two ulcers in the distant colon, she told me. Upper GI was normal. She said she is getting now that she passes out when stands up similar to what she did one year ago. Her nurse practitioner stopped her iron so I assume at one point her hemoglobin had recovered. In the emergency room her hemoglobin was down to 4 something and was admitted for follow up. She has had no change in her bowel movements, no black stools, no vomiting and no abdominal pain. She states she has been tired, coughing, no fever, just aching all over. She was tested for COVID and was positive. HOSPITAL COURSE: The patient was given 2 units of packed cells and after that she felt immediately better. Hemoglobin the day before discharge was 7.8. Dr. Cheung saw her on admission and did EGD that night which was normal and suggested she follow up for a colonoscope after the COVID is over as long as she stays stable. She feels well. She is not coughing. She is not short of breath. She never required oxygen. She is very in favor of going home, isolate for seven days, follow up with her own physician to get a colonoscope set up in two to three weeks, to start back on iron 325 mg twice a day and continue her thyroid pills. She is to avoid any Motrin, Aleve, aspirin. She may take Tylenol. She has a good understanding of the disease. PROGNOSIS: Good.
== END 2021-05-15 11:30 | disposition home or self-care (01) | DRG 177 ==
LOC: ED 10:05 → MED SURG 15:15
PROVIDERS: ADMIT Family Medicine; ATTEND Family Medicine
PROC: 0DD58ZX Extraction of Esophagus, Via Natural or Artificial Opening Endoscopic, Diagnostic (ICD-10-PCS; principal; 2021-05-13)
DX: U07.1 COVID-19 (principal); J12.82 Pneumonia due to coronavirus disease 2019; K92.2 Gastrointestinal hemorrhage, unspecified; D50.9 Iron deficiency anemia, unspecified; R55 Syncope and collapse; K22.89 Other specified disease of esophagus; L53.8 Other specified erythematous conditions; I10 Essential (primary) hypertension; E11.9 Type 2 diabetes mellitus without complications; J44.9 Chronic obstructive pulmonary disease, unspecified; E78.5 Hyperlipidemia, unspecified; E03.9 Hypothyroidism, unspecified; Z79.899 Other long term (current) drug therapy; Z20.828 Contact with and (suspected) exposure to other viral communicable diseases
CPT/HCPCS: 0241U; 36000; 36415; 36430; 71045; 74176; 80053; 81001; 82274; 82947; 83036; 83605; 83690; 84484; 85014; 85018; 85025; 85027; 86850; 86900; 86901; 86922; 87040; 87077; 87086; 87186; 88305; 93041; 94762; 96360; 96374; 96375; 99284; 99291; J2405; J2704; P9016; A9270-GY; G0328

== ENCOUNTER 2021-06-09 06:08 | Day surgery (SDC) | payer OTHER ==
[2021-06-09] MEDS ORDERED: Lactated Ringers 1,000 ML IV SCH (06:30)
[2021-06-09] MEDS ORDERED: DIPRIVAN 200 MG/20 ML IV ONE ×2 (07:55→08:10)
[2021-06-09 09:27] VITALS: O2SAT 98
--- NOTE | 2021-06-09 09:34 | OP ---
SURGERY DATE/TIME: 06/09/2021 0757 PREOPERATIVE DIAGNOSIS: Anemia. POSTOPERATIVE DIAGNOSIS: Mild to moderate nonspecific colitis. PROCEDURE: Colonoscopy with cold forceps biopsy. SURGEON: Dr. Mims. ANESTHESIA: MAC. Medications given by anesthesia department. HISTORY: The patient is a 61-year-old white female presenting now for history of anemia. She has had upper scope performed approximately three or four weeks ago which was nonrevealing. The patient was thought to need to have colonoscopic evaluation. The patient was appraised of the risks of the procedure including the risk of perforation, phlebitis, untoward reaction to medication, bleeding and missed lesions. The patient verbalized her understanding and desired to have the procedure performed. DESCRIPTION OF PROCEDURE: The patient was given the medications by the anesthesia department. She had continuous pulse oximetry, ECG monitoring, intermittent blood pressure monitoring and tidal CO2 monitoring during the examination. She was placed in the left lateral decubitus position. A digital rectal examination was performed and revealed normal anal sphincter tone and no masses. The flexible Olympus pediatric colonoscope was used to intubate the rectum. A view of the colon was developed sequentially to the cecum including a short distance into the terminal ileum. Upon insertion and withdrawal, there appeared to be some mild to moderate nonspecific colitis particularly in the right colon. Biopsies were obtained using cold biopsy technique to help with diagnosis. The scope was removed from the patient who tolerated the procedure well and was sent back to OP recovery in good condition. The prep was noted to be fair to good.
[2021-06-09 09:38] VITALS: BP 138/72; PULSE 82
== END 2021-06-09 09:30 | disposition home or self-care (01) ==
LOC: SDC 06:08
PROVIDERS: ATTEND Family Medicine
DX: K52.9 Noninfective gastroenteritis and colitis, unspecified (principal); D64.9 Anemia, unspecified; E11.9 Type 2 diabetes mellitus without complications
CPT/HCPCS: 82947; J2704

== ENCOUNTER 2022-08-06 15:04 | Emergency (ER) | payer MEDICARE, OTHER ==
--- NOTE | 2022-08-06 15:20 | ERPHSYRPT ---
- History of Present Illness Time Seen by Provider: 08/06/22 15:20 Source: patient Exam Limitations: no limitations Physician History: This is a 62-year-old white female who is right-handed and tripped over her purse last evening and landed on her left elbow. She has pain in the left humerus and the left forearm as well. Patient has no neck pain. She did not hit her head. She has no chest pain. She is not short of breath. Patient has a history of hypothyroidism, diabetes, gastroesophageal reflux disease, hyperlipidemia and COPD. Occurred: yesterday Reason for Fall: tripped Injuries/Pain Location: upper extremity (Left humerus, elbow and forearm) Loss of Consciousness: no loss of consciousness Severity of Pain-Max: moderate Severity of Pain-Current: moderate Modifying Factors: Improves With: movement Associated Symptoms (Fall): denies symptoms Allergies/Adverse Reactions: Androgenic Anabolic Steroid Allergy (Severe, Verified 08/06/22 15:26) Anaphylactic Reaction pt states she is allergic to all steroids Latex, Natural Rubber Allergy (Verified 08/06/22 15:26) Home Medications: ALPRAZolam 0.5 MG [xanAX 0.5 MG] 0.5 mg PO BID 01/23/18 [History] Citalopram Hydrobromide 20 mg* [ceLEXa 20 MG] 20 mg PO DAILY 01/23/18 [History] Fenofibrate Nanocrystallized [Fenofibrate] 134 mg PO DAILY 01/23/18 [History] Levothyroxine Sodium 100 mcg PO DAILY 01/23/18 [History] Loratadine 10 mg PO DAILY 01/23/18 [History] Omeprazole 20 mg PO DAILY 01/23/18 [History] Pravastatin Sodium 20 mg PO DAILY 01/23/18 [History] Albuterol Sulfate [Albuterol Sulfate Hfa] 2 puffs IH Q4-6HPRN PRN 05/13/21 [Hi story] Famotidine [Acid Controller] 10 mg PO DAILY 06/09/21 [History] Budesonide/Formoterol Fumarate [Budesonide-Formoterol 160-4.5] 2 puffs PO BID 08/06/22 [History] glyBURIDE [Glyburide] 2.5 mg PO DAILY 08/06/22 [History] Hx Tetanus, Diphtheria Vaccination/Date Given: Yes Hx Influenza Vaccination/Date Given: Yes Hx Pneumococcal Vaccination/Date Given: Yes Travel Risk - International Travel Have you traveled outside of the country in past 3 weeks: No - Coronavirus Screening Are you exhibiting any of the following symptoms?: No Close contact with a COVID-19 positive Pt in past 14-21 Days: No - Vaccine Status Have you recieved a Covid-19 vaccination: No - Review of Systems Constitutional: No Symptoms Eyes: No Symptoms Ears, Nose, & Throat: No Symptoms Respiratory: No Symptoms Cardiac: No Symptoms Abdominal/Gastrointestinal: No Symptoms Genitourinary Symptoms: No Symptoms Musculoskeletal: Fall, Injury (Left humerus, elbow and left forearm) Skin: No Symptoms Neurological: No Symptoms Psychological: No Symptoms Endocrine: No Symptoms Hematologic/Lymphatic: No Symptoms Immunological/Allergic: No Symptoms All Other Systems: Reviewed and Negative - Past Medical History Pertinent Past Medical History: Yes Neurological History: No Pertinent History ENT History: No Pertinent History Cardiac History: No Pertinent History Respiratory History: COPD Endocrine Medical History: Diabetes Type II Musculoskeletal History: No Pertinent History GI Medical History: GERD, Ulcer History: No Pertinent History Psycho-Social History: No Pertinent History Female Reproductive Disorders: No Pertinent History Other Medical History: anemia, - Past Surgical History Past Surgical History: Yes Neuro Surgical History: No Pertinent History Cardiac: No Pertinent History Respiratory: No Pertinent History Gastrointestinal: Cholecystectomy Genitourinary: No Pertinent History Female Surgical History: Tubal Ligation Other Surgical History: oral surgery as a child,colonoscopy - Social History Smoking Status: Former smoker How long have you smoked: age 24 Exposure to second hand smoke: Yes Drug Use: none Patient Lives Alone: No - Nursing Vital Signs Nursing Vital Signs: Initial Vital Signs Temperature 97.5 F 08/06/22 15:17 Pulse Rate 72 08/06/22 15:17 Blood Pressure 151/85 08/06/22 15:17 O2 Sat by Pulse Oximetry 98 08/06/22 15:17 Pain Scale Pain Intensity 8 - Paz Coma Score Best Eye Response (Paz): (4) open spontaneously Best Verbal Response ([place]): (5) oriented Best Motor Response (Paz): (6) obeys commands Paz Total: 15 - Physical Exam General Appearance: no apparent distress, alert, anxiety Head Injury: no evidence of injury Eye Exam: PERRL/EOMI, eyes nml inspection ENT Exam: airway nml, nml ext.inspection Neck Exam: supple, trachea midline, full range of motion, normal alignment, normal inspection Respiratory/Chest Exam: normal breath sounds, No chest tenderness, No respiratory distress, No ecchymosis, No crepitus Gastrointestinal Exam: No tenderness Rectal Exam: not done Back Exam: normal inspection, normal range of motion, No CVA tenderness, No vertebral tenderness Extremity Exam: normal inspection, normal range of motion, pelvis stable, pain with movement (Left upper extremity), No deformities Neurologic Exam: alert, oriented x 3, cooperative, 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 The work-up was based on the past medical history, review of the patient's medication list, review of the patient's drug allergy list, past medical history and physical findings on examination. Patient has full range of motion of the left upper extremity but there is tenderness with movement. There is no evidence of deformity. The work-up includes x-ray of the left humerus, left elbow and left forearm. I reviewed the reported impression/results from the radiologist who read the films. There is no evidence of any fractures or dislocations on humerus x-ray, forearm x-ray or elbow x-ray. Discharge planning was discussed with the patient includes ice pack to tender areas 3 times a day for the next 48 hours. I will also write 2 days of hydrocodone medication for this patient. She is to follow- up with her primary care physician for further evaluation management. Counseled pt/family regarding: diagnosis, need for follow-up, rad results Medical Desision Making - Discussion of managment Reviewed:: Test results Agreed on:: Treatment plan, need for follow-up - Diagnostic Testing Diagnostic test were ordered, analyzed, and reviewed by me: Yes Radiological Interpretation: Reviewed by me, Teleradiologist Report - Risk of complications The pt has a mod risk of morbidity or mortality based on: Need for prescription drug management - Departure Departure Disposition: Home Clinical Impression: Fall with no significant injury, Contusion Condition: Stable Critical Care Time: No Referrals: ESTEVAN ZURITA [Primary Care Provider] - Follow up/PCP as directed Additional Instructions: Ice pack to tender areas 3 times daily for the next 48 hours. If the pain persist beyond 48 hours, follow-up with the [facility] orthopedic clinic or your primary care provider for further evaluation management. Take your medications as prescribed. Prescriptions: Hydrocodone/APAP 5/325 [[place] 5/325 mg] 1 each PO Q12H PRN PRN #4 tablet MDD 2 PRN Reason: Pain
--- NOTE | 2022-08-06 16:28 | XRAY ---
Indication: Pain following fall. Comparison: January 23, 2018 3 view left elbow obtained. No bony, articular, or soft tissue abnormalities.
--- NOTE | 2022-08-06 16:29 | XRAY ---
Indication: Pain following fall. Comparison: None 2 view left humerus demonstrates mild acromioclavicular degenerative changes and 3 mm well-circumscribed benign soft tissue calcification lateral to humeral head. No other bony, articular, or soft tissue abnormalities.
--- NOTE | 2022-08-06 16:31 | XRAY ---
Indication: Pain following fall. Comparison: None 2 view left forearm obtained. No bony, articular, or soft tissue abnormalities.
[2022-08-06 18:10] VITALS: BP 126/93; PULSE 69; O2SAT 100
== END 2022-08-06 18:16 | disposition home or self-care (01) ==
LOC: ED 15:04
DX: S50.02XA Contusion of left elbow, initial encounter (principal); W01.0XXA Fall on same level from slipping, tripping and stumbling without subsequent striking against object, initial encounter; M79.602 Pain in left arm; E11.9 Type 2 diabetes mellitus without complications; E78.5 Hyperlipidemia, unspecified; Z79.84 Long term (current) use of oral hypoglycemic drugs; Z79.899 Other long term (current) drug therapy; Z79.891 Long term (current) use of opiate analgesic; Z28.310 Unvaccinated for COVID-19
CPT/HCPCS: 73060; 73080; 73090; 99283

== ENCOUNTER 2023-04-07 10:25 | Emergency (ER) | payer MEDICARE, OTHER ==
[2023-04-07] MEDS ORDERED: Sodium Chloride 0.9% 1000 ML 1,000 ML IV STA (10:35)
[2023-04-07] MEDS ORDERED: Hydromorphone 1 mg/ml Injection IV ONE (10:35)
[2023-04-07] MEDS ORDERED: Zofran 4 MG/2 ML VIAL IV ONE (10:35)
--- NOTE | 2023-04-07 10:35 | ERPHSYRPT ---
- History of Present Illness Time Seen by Provider: 04/07/23 10:35 Historian: patient Exam Limitations: no limitations Physician History: This is a 62-year-old white female patient of Dr. Mims who was brought into the emergency department by family/friends and into the patient's emergency room #6 by wheelchair. Patient woke up this morning feeling fine and then suddenly, prior to arrival to the emergency department, she felt like she was going to have a bowel movement then felt dizzy as if she was going to pass out and had associated nausea and headache without vomiting or diarrhea. Patient was feeling fine prior to this episode. She had a similar episode in the past which required a blood transfusion. However, she has not had any hematemesis, hemoptysis, or hematuria. Patient denies chest pain. She does not have a fever. She does not have a cough. Her only prior abdominal surgery has been a cholecystectomy. Her pain is generalized achiness. Patient is not on any blood thinning medication. She has a history of hypothyroidism, diabetes, COPD, anxiety, gastroesophageal reflux disease, seasonal allergies and hyperlipidemia. Timing/Duration: today Quality: aching Abdominal Pain Onset Location: generalized abdomen Severity of Pain-Max: moderate Severity of Pain-Current: moderate Modifying Factors: Improves With: nothing Associated Symptoms: nausea Previous symptoms: same symptoms as today, no recent treatment Allergies/Adverse Reactions: Androgenic Anabolic Steroid Allergy (Severe, Verified 04/07/23 10:27) Anaphylactic Reaction pt states she is allergic to all steroids Latex, Natural Rubber Allergy (Verified 04/07/23 10:27) Home Medications: ALPRAZolam 0.5 MG [xanAX 0.5 MG] 0.5 mg PO BID 01/23/18 [History] Citalopram Hydrobromide 20 mg* [ceLEXa 20 MG] 20 mg PO DAILY 01/23/18 [History] Fenofibrate Nanocrystallized [Fenofibrate] 134 mg PO DAILY 01/23/18 [History] Levothyroxine Sodium 100 mcg PO DAILY 01/23/18 [History] Loratadine 10 mg PO DAILY 01/23/18 [History] Omeprazole 20 mg PO DAILY 01/23/18 [History] Pravastatin Sodium 20 mg PO DAILY 01/23/18 [History] Albuterol Sulfate [Albuterol Sulfate Hfa] 2 puffs IH Q4-6HPRN PRN 05/13/21 [History] Famotidine [Acid Controller] 10 mg PO DAILY 06/09/21 [History] Budesonide/Formoterol Fumarate [Budesonide-Formoterol 160-4.5] 2 puffs PO BID 08/06/22 [History] glyBURIDE [Glyburide] 2.5 mg PO DAILY 08/06/22 [History] Hx Tetanus, Diphtheria Vaccination/Date Given: Yes Hx Influenza Vaccination/Date Given: Yes Hx Pneumococcal Vaccination/Date Given: Yes Travel Risk - International Travel Have you traveled outside of the country in past 3 weeks: No - Coronavirus Screening Are you exhibiting any of the following symptoms?: No Close contact with a COVID-19 positive Pt in past 14-21 Days: No - Vaccine Status Have you recieved a Covid-19 vaccination: No - Review of Systems Constitutional: No Symptoms Eyes: No Symptoms Ears, Nose, & Throat: No Symptoms Respiratory: No Symptoms Cardiac: No Symptoms Abdominal/Gastrointestinal: Abdominal Pain, Nausea Genitourinary Symptoms: No Symptoms Musculoskeletal: No Symptoms Skin: No Symptoms Neurological: No Symptoms, Headache, No Dizziness Psychological: No Symptoms Endocrine: No Symptoms Hematologic/Lymphatic: No Symptoms Immunological/Allergic: No Symptoms All Other Systems: Reviewed and Negative - Past Medical History Pertinent Past Medical History: Yes Neurological History: No Pertinent History ENT History: No Pertinent History Cardiac History: No Pertinent History Respiratory History: COPD Endocrine Medical History: Diabetes Type II Musculoskeletal History: No Pertinent History GI Medical History: GERD, Ulcer History: No Pertinent History Psycho-Social History: No Pertinent History Female Reproductive Disorders: No Pertinent History Other Medical History: anemia, - Past Surgical History Past Surgical History: Yes Neuro Surgical History: No Pertinent History Cardiac: No Pertinent History Respiratory: No Pertinent History Gastrointestinal: Cholecystectomy Genitourinary: No Pertinent History Female Surgical History: Tubal Ligation Other Surgical History: oral surgery as a child,colonoscopy - Social History Smoking Status: Former smoker How long have you smoked: age 24 Exposure to second hand smoke: Yes Drug Use: none Patient Lives Alone: No - Nursing Vital Signs Nursing Vital Signs: Initial Vital Signs Temperature 97.0 F 04/07/23 10:27 Pulse Rate 71 04/07/23 10:27 Respiratory Rate 18 04/07/23 10:27 Blood Pressure 120/71 04/07/23 10:27 O2 Sat by Pulse Oximetry 100 04/07/23 10:27 Pain Scale Pain Intensity 5 - Physical Exam General Appearance: mild distress, alert, anxiety Eye Exam: PERRL/EOMI, eyes nml inspection Ears, Nose, Throat Exam: normal ENT inspection, moist mucous membranes Neck Exam: normal inspection, non-tender, supple, full range of motion Respiratory Exam: normal breath sounds, lungs clear, airway intact, No chest tenderness, No respiratory distress Cardiovascular Exam: regular rate/rhythm, normal heart sounds, normal peripheral pulses Gastrointestinal/Abdomen Exam: soft, normal bowel sounds, tenderness (Mild generalized to palpation), guarding Pelvic Exam: not done (Generalized to palpation) Rectal Exam: not done Back Exam: normal inspection, normal range of motion, No CVA tenderness, No vertebral tenderness Extremity Exam: normal inspection, normal range of motion, pelvis stable Neurologic Exam: alert, oriented x 3, cooperative, pill machine operator II-XII nml as tested, normal mood/affect, nml cerebellar function, nml station & gait, sensation nml Skin Exam: normal color, warm, dry Lymphatic Exam: No adenopathy SpO2 Interpretation: normal O2 Delivery: Room Air - Course Nursing assessment & vital signs reviewed: Yes Ordered Tests: Active Orders 24 hr Category Date Time Status IV Insertion STAT Care 04/07/23 10:35 Active ABDOMEN AND PELVIS W/0 CONTRAS [CT] Stat Exams 04/07/23 10:35 Completed AMYLASE Stat Lab 04/07/23 10:30 Completed CBC W DIFF Stat Lab 04/07/23 10:30 Completed CMP Stat Lab 04/07/23 10:30 Completed CULTURE,URINE Stat Lab 04/07/23 12:28 Received LIPASE Stat Lab 04/07/23 10:30 Completed UA W/RFX UR CULTURE Stat Lab 04/07/23 12:28 Completed Medication Summary Generic Name Dose Route Start Last Admin Trade Name Freq PRN Reason Stop Dose Admin Sodium Chloride 500 mls @ 500 mls/hr 04/07/23 12:43 Sodium Chloride 0.9% 500 Ml IV 04/07/23 13:42 .Q1H ONE Discontinued Medications Generic Name Dose Route Start Last Admin Trade Name Freq PRN Reason Stop Dose Admin Hydromorphone HCl 1 mg 04/07/23 10:35 04/07/23 10:43 Hydromorphone 1 Mg/1ml Inj IV 04/07/23 10:36 1 mg STAT ONE Administration Hydromorphone HCl Confirm 04/07/23 10:41 Hydromorphone 1 Mg/1ml Inj Administered 04/07/23 10:42 Dose 1 mg .ROUTE .STK-MED ONE Sodium Chloride 1,000 mls @ 999 mls/hr 04/07/23 10:35 04/07/23 11:44 Sodium Chloride 0.9% 1000 Ml IV 04/07/23 11:35 Infused .Q1H1M STA Infusion Sodium Chloride Confirm 04/07/23 10:41 Sodium Chloride 0.9% 1000 Ml Administered 04/07/23 10:42 Dose 1,000 mls @ ud .ROUTE .STK-MED ONE Ondansetron HCl 4 mg 04/07/23 10:35 04/07/23 10:43 Ondansetron Hcl 4 Mg/2 Ml Vial IV 04/07/23 10:36 4 mg STAT ONE Administration Ondansetron HCl Confirm 04/07/23 10:41 Ondansetron Hcl 4 Mg/2 Ml Vial Administered 04/07/23 10:42 Dose 4 mg .ROUTE .STK-MED ONE Prochlorperazine Edisylate 5 mg 04/07/23 12:43 Prochlorperazine Edisylate 10 Mg/2 Ml Vial IV 04/07/23 12:44 STAT ONE Lab/Rad Data: Laboratory Result Diagrams 04/07/23 10:30 04/07/23 10:30 Laboratory Results 04/07/23 04/07/23 04/07/23 Range/Units 12:28 10:30 10:30 WBC 6.6 (4.0-10.5) x10^3/uL RBC 4.46 (4.1-5.4) x10^6/uL Hgb 13.4 (12.0-16.0) g/dL Hct 39.9 (35-47) % MCV 89.5 (78-100) fL MCH 30.0 (26-32) pg MCHC 33.6 (32-36) g/dL RDW 13.4 (11.5-14.0) % Plt Count 199 (150-450) x10^3/uL MPV 9.0 (7.5-11.0) fL Gran % 60.0 (36.0-66.0) % Immature Gran % (Auto) 0.3 (0.00-0.4) % Nucleat RBC Rel Count 0.0 (0.00-0.1) % Eos # (Auto) 0.14 (0-0.5) x10^3/uL Immature Gran # (Auto) 0.02 (0.00-0.03) x10^3u/L Absolute Lymphs (auto) 2.03 (1.0-4.6) x10^3/uL Absolute Monos (auto) 0.42 (0.0-1.3) x10^3/uL Absolute Nucleated RBC 0.00 (0.00-0.01) x10^3u/L Lymphocytes % 30.7 (24.0-44.0) % Monocytes % 6.4 (0.0-12.0) % Eosinophils % 2.1 (0.00-5.0) % Basophils % 0.5 (0.0-0.4) % Absolute Granulocytes 3.97 (1.4-6.9) x10^3/uL Basophils # 0.03 (0-0.4) x10^3/uL Sodium 139 (137-145) mmol/L Potassium 3.4 L (3.5-5.1) mmol/L Chloride 106 (98-107) mmol/L Carbon Dioxide 21 L (22-30) mmol/L Anion Gap 15.0 (5-15) MEQ/L BUN 11 (7-17) mg/dL Creatinine 0.96 (0.52-1.04) mg/dL Estimated GFR 67.7 ML/MIN Glucose 155 H (74-106) mg/dL Calcium 9.0 (8.4-10.2) mg/dL Total Bilirubin 0.60 (0.2-1.3) mg/dL AST 54 H (14-36) U/L ALT 31 (0-35) U/L Alkaline Phosphatase 114 (38-126) U/L Serum Total Protein 7.4 (6.3-8.2) g/dL Albumin 4.2 (3.5-5.0) g/dL Amylase 77 (30-110) U/L Lipase 77 (23-300) U/L Urine Color Yellow (Yellow) Urine Appearance Turbid A (Clear) Urine pH 7.5 (4.6-8.0) Ur Specific [place] 1.015 (1.005-1.030) Urine Protein Negative (Negative) Urine Glucose (UA) Negative (Negative) mg/dL Urine Ketones Negative (Negative) Urine Blood Large A (Negative) Urine Nitrite Negative (Negative) Urine Bilirubin Negative (Negative) Urine Urobilinogen 1.0 A (0.2) mg/dL Ur Leukocyte Esterase Small A (Negative) U Hyaline Cast (Auto) NONE SEEN (0-2) /LPF Urine Microscopic RBC 51-100 A (0-5) /HPF Urine Microscopic WBC 6-10 A (0-5) /HPF Ur Epithelial Cells Few (None Seen) /HPF Urine Bacteria Many A (None Seen) /HPF Urine Culture Reflexed YES (NO) - Progress Progress: improved, pain not gone completely Progress Note: 04/07/23 10:56 This patient's medical issue is 1 of moderate complexity. Level complexity in the work-up performed is based on review of the patient's past medical history, review the patient's medication list, review of the patient's drug allergy list, history of present illness and physical findings on examination. The work-up in this patient is placement of intravenous line, infusion of 1 L normal saline solution, infusion of Dilaudid 1 mg, infusion of 4 mg intravenous Zofran, CBC, CMP, amylase, lipase, urinalysis and CT scan of the abdomen pelvis. 04/07/23 11:42 I reviewed and interpreted the lab work that has returned. So far, no evidence of any acute or emergent laboratory results. We are awaiting the urinalysis. The CT scan of the abdomen and pelvis without contrast shows no evidence of small bowel obstruction. The appendix is not seen. There is no evidence of sharifa e air or free fluid. There is sigmoid diverticulosis without diverticulitis. There is no evidence of abdominal aortic aneurysm. The remainder of the CAT scan of the abdomen pelvis without contrast is negative. This study was interpreted by the radiologist and I reviewed the impression. 04/07/23 11:44 Counseled pt/family regarding: lab results, diagnosis, need for follow-up, rad results Medical Desision Making - Independent Historian Additional History obtained from: Spouse - Diagnostic Testing Diagnostic test were ordered, analyzed, and reviewed by me: Yes Radiological Interpretation: Reviewed by me, Teleradiologist Report - Risk of complications The pt has a mod risk of morbidity or mortality based on: Need for prescription drug management - Departure Departure Disposition: Home Clinical Impression: UTI (urinary tract infection) Condition: Stable Critical Care Time: No Referrals: ESTEVAN MIMS [Primary Care Provider] - Follow up/PCP as directed Additional Instructions: Drink plenty of clear liquids before advancing your diet. Take your antibiotics and other medications as prescribed. Call your primary care doctor today, 06/07/2022, to make arrangements for further evaluation and and management. Prescriptions: Promethazine HCl 25 mg [Phenergan 25 mg] 25 mg PO Q8H PRN PRN #10 tablet PRN Reason: Nausea/Vomiting Ciprofloxacin [Cipro 500 MG] 500 mg PO BID #14 tablet
[2023-04-07 10:36] VITALS: TEMP 97
[2023-04-07] MEDS ORDERED: Sodium Chloride 0.9% 1000 ML 1,000 ML ONE (10:41)
[2023-04-07] MEDS ORDERED: Zofran 4 MG/2 ML VIAL ONE (10:41)
[2023-04-07] MEDS ORDERED: Hydromorphone 1 mg/ml Injection ONE (10:41)
[2023-04-07 10:50] LABS: Absolute Neutrophil Ct (ANC) 3.97 x10^3/uL (1.4-6.9); BASOPHIL % 0.5 % (0.0-0.4); Basophil (Absolute #) 0.03 x10^3/uL (0-0.4); Eosinophil % 2.1 % (0.00-5.0); Eosinophil (Absolute #) 0.14 x10^3/uL (0-0.5); Hematocrit 39.9 % (35-47); Hemoglobin 13.4 g/dL (12.0-16.0); IMMATURE GRAN # 0.02 x10^3u/L (0.00-0.03); IMMATURE GRAN % 0.3 % (0.00-0.4); Lymphocyte (Absolute #) 2.03 x10^3/uL (1.0-4.6); Lymphocytes % 30.7 % (24.0-44.0); Mean Cell Volume 89.5 fL (78-100); Mean Corpuscular Hgb Concent. 33.6 g/dL (32-36); Monocyte (Absolute #) 0.42 x10^3/uL (0.0-1.3); Monocytes % 6.4 % (0.0-12.0); Platelet Count 199 x10^3/uL (150-450); Red Blood Count 4.46 x10^6/uL (4.1-5.4); Red Cell Distribution Width 13.4 % (11.5-14.0); White Blood Count 6.6 x10^3/uL (4.0-10.5)
[2023-04-07 11:03] LABS: ALBUMIN 4.2 g/dL (3.5-5.0); BILIRUBIN,TOTAL 0.6 mg/dL (0.2-1.3); Creatinine 1 0.96 mg/dL (0.52-1.04); EST GLOMERULAR FILTRATION RATE 67.7 ML/MIN; Potassium 3.4 mmol/L (3.5-5.1); Total Protein 7.4 g/dL (6.3-8.2)
--- NOTE | 2023-04-07 11:39 | XRAY ---
Indication: Abdomen pain. Multiple contiguous axial images obtained through the abdomen and pelvis without contrast. Comparison: May 13, 2021 Lung bases now clear. Heart not enlarged. Noncontrasted stomach and bowel loops appear nonobstructed. Appendix again not seen. There remains minimal sigmoid diverticulosis without diverticulitis. Again mild diffuse fatty liver, 13.7 cm splenomegaly, and cholecystectomy. No free fluid/air. Remaining liver, pancreas, spleen, adrenal glands, kidneys, ureters, bladder, and uterus are unremarkable for noncontrast exam. There remains mild scattered aortoiliac calcifications without AAA. Osseous structures intact again with minimal degenerative changes throughout the spine. Impression: 1. Again fatty liver, splenomegaly, and sigmoid diverticulosis. 2. Remaining CT abdomen/pelvis without contrast exam continues to be negative.
[2023-04-07 12:35] VITALS: BP 156/73; O2SAT 95
[2023-04-07] MEDS ORDERED: Sodium Chloride 0.9% 500 ML 500 ML IV ONE ×2 (12:43→12:52)
[2023-04-07] MEDS ORDERED: Compazine 10 MG/2 ML IV ONE (12:43)
[2023-04-07 12:49] LABS: Appearance Turbid (Clear); Bacteria Many /HPF (None Seen); Bilirubin Negative (Negative); Blood Large (Negative); Epithelial Cells Few /HPF (None Seen); Glucose, Urine Negative (Negative); Hyaline Casts NONE SEEN /LPF (0-2); Ketones Negative (Negative); Leukocyte Esterase Small (Negative); Nitrite Negative (Negative); Ph 7.5 (4.6-8.0); Protein,Urine Dip Negative (Negative); RBC 51-100 /HPF (0-5); Specific Gravity 1.015 (1.005-1.030)
[2023-04-07 12:51] LABS: ADD URINE CULTURE? YES (NO)
[2023-04-07] MEDS ORDERED: Compazine 10 MG/2 ML ONE (12:52)
[2023-04-07] MEDS ORDERED: ROCEPHIN 1 Gm-D5w 50 ml Bag** 1 G/50 ML IVPB IV STA (12:54)
[2023-04-07 13:21] VITALS: RESP 16
[2023-04-07] MEDS ORDERED: ROCEPHIN 1 Gm-D5w 50 ml Bag** 1 G/50 ML IVPB IV ONE (13:24)
[2023-04-07 13:54] VITALS: PULSE 76
== END 2023-04-07 14:00 | disposition home or self-care (01) ==
LOC: ED 10:25
DX: N39.0 Urinary tract infection, site not specified (principal); R42 Dizziness and giddiness; R11.0 Nausea; R51.9 Headache, unspecified; E11.9 Type 2 diabetes mellitus without complications; E78.5 Hyperlipidemia, unspecified; Z79.84 Long term (current) use of oral hypoglycemic drugs; Z79.899 Other long term (current) drug therapy; Z28.310 Unvaccinated for COVID-19
CPT/HCPCS: 36000; 36415; 74176; 80053; 81001; 82150; 83690; 85025; 87086; 93005; 96365; 96374; 96375; 99284; J0696; J1170; J2405

== ENCOUNTER 2025-04-01 18:20 | Emergency (ER) | payer MEDICARE ==
[2025-04-01 18:24] VITALS: TEMP 97.3
--- NOTE | 2025-04-01 19:05 | ERPHSYRPT ---
- History of Present Illness Time Seen by Provider: 04/01/25 18:45 Source: patient, family Exam Limitations: clinical condition Patient Subjective Stated Complaint: abd pain, low blood sugar Triage Nursing Assessment: Pt brought in by wheelchair from staff medic Randall Zacarias, EMT-P. Pt had her eyes open, was lethargic when placed in bed. Pt's son brought her in. Pt was sitting in her son's car while he was smoking and said, "I don't feel good, I feel like my sugar is dropping". Her son got her some pop and a jolly rancher to suck on and she never perked up so he brought her in. Pt's BS upon arrival was 116. We attempted to straight cath pt for UA sample and only got one drop. Pt did become more alert during triage answering questions appropriately. Pt did not pass out or have any loc. Pt c/o abd pain to RUQ that started today, denies any vomiting or diarrhea. Abd soft with active bs x4 quad, nontender. Physician History: This is a 64-year-old diabetic white female patient arrives by private vehicle accompanied by her son and is a patient of Dr. Mims with lethargy and mild altered mental status as well as right upper quadrant abdominal pain. Patient was not feeling good and went outside to have a smoke of his cigarette and while she was in the car smoking a cigarette she started becoming lethargic. There was no syncopal episode and no fall. Patient denies chest pain and she denies shortness of breath. Patient denies illicit drug use. She has had no nausea vomiting or diarrhea symptoms. Patient complains of abdominal pain as well. Primarily the pain to the right upper quadrant. Patient is a diabetic, has hyperlipidemia, gastroesophageal reflux disease, hypothyroidism, COPD and anxiety. Timing/Duration: today Severity: moderate Character of Deficits: none Deficits: no difficulties Baseline/Normal Cognition: alert oriented x 3 Baseline Gait: walks w/o assistance Associated Symptoms: fatigue, other (Lethargic) Allergies/Adverse Reactions: Androgenic Anabolic Steroid Allergy (Severe, Verified 04/01/25 18:31) Anaphylactic Reaction pt states she is allergic to all steroids Latex, Natural Rubber Allergy (Verified 04/01/25 18:31) Home Medications: ALPRAZolam 0.5 MG [xanAX 0.5 MG] 0.5 mg PO BID 01/23/18 [History] Citalopram Hydrobromide 20 mg* [ceLEXa 20 MG] 20 mg PO DAILY 01/23/18 [History] Fenofibrate Nanocrystallized [Fenofibrate] 134 mg PO DAILY 01/23/18 [History] Levothyroxine Sodium 100 mcg PO DAILY 01/23/18 [History] Loratadine 10 mg PO DAILY 01/23/18 [History] Omeprazole 20 mg PO DAILY 01/23/18 [History] Pravastatin Sodium 20 mg PO DAILY 01/23/18 [History] Albuterol Sulfate [Albuterol Sulfate Hfa] 2 puffs IH Q4-6HPRN PRN 05/13/21 [History] Famotidine [Acid Controller] 10 mg PO DAILY 06/09/21 [History] Budesonide/Formoterol Fumarate [Budesonide-Formoterol 160-4.5] 2 puffs PO BID 08/06/22 [History] glyBURIDE [Glyburide] 2.5 mg PO DAILY 08/06/22 [History] Hx Tetanus, Diphtheria Vaccination/Date Given: Yes Hx Influenza Vaccination/Date Given: No Hx Pneumococcal Vaccination/Date Given: No Travel Risk - International Travel Have you traveled outside of the country in past 3 weeks: No - Emerging Infectious Disease Are you exhibiting symptoms associated with any current EIDs: Yes Symptoms: Abdominal Pain - Review of Systems Constitutional: Lethargy Eyes: No Symptoms Ears, Nose, & Throat: No Symptoms Respiratory: No Symptoms Cardiac: No Symptoms Abdominal/Gastrointestinal: Abdominal Pain, No Nausea, No Vomiting, No Diarrhea, No Constipation, No Appetite Changes Genitourinary Symptoms: No Symptoms Musculoskeletal: No Symptoms Skin: No Symptoms Neurological: Lethargy, No Headache Psychological: No Symptoms, No Suicidal Ideations, No Homicidal Ideations Endocrine: No Symptoms Hematologic/Lymphatic: No Symptoms Immunological/Allergic: No Symptoms All Other Systems: Reviewed and Negative - Past Medical History Pertinent Past Medical History: Yes Neurological History: No Pertinent History ENT History: No Pertinent History Cardiac History: No Pertinent History Respiratory History: COPD Endocrine Medical History: Diabetes Type II Musculoskeletal History: No Pertinent History GI Medical History: GERD, Gallbladder Disease, Ulcer History: No Pertinent History Psycho-Social History: No Pertinent History Female Reproductive Disorders: No Pertinent History Other Medical History: anemia, - Past Surgical History Past Surgical History: Yes Neuro Surgical History: No Pertinent History Cardiac: No Pertinent History Respiratory: No Pertinent History Gastrointestinal: Cholecystectomy Genitourinary: No Pertinent History Female Surgical History: Tubal Ligation Other Surgical History: oral surgery as a child,colonoscopy - Social History Smoking Status: Former smoker Exposure to second hand smoke: Yes Drug Use: none - Social Determinants of Health Will the patient participate in the screening: Yes Do you worry about a steady place to live?: No Do you have any problems with any of the following?: No known problems In the past 12 months,have you had to go without utilities?: No Transportation Issues: No Has anyone in your support network made you feel unsafe?: No Have you or anyone in your house had to go w/o enough food: No - Nursing Vital Signs Nursing Vital Signs: Initial Vital Signs Temperature 97.3 F 04/01/25 18:22 Pulse Rate 90 04/01/25 18:22 Respiratory Rate 16 04/01/25 18:22 Blood Pressure 97/48 04/01/25 18:22 O2 Sat by Pulse Oximetry 100 04/01/25 18:22 Pain Scale Pain Intensity 0 - Paz Coma Scale Best Eye Response ([place]): (4) open spontaneously Best Verbal Response ([place]): (5) oriented Best Motor Response ([place]): (6) obeys commands Paz Total: 15 - Physical Exam General Appearance: no apparent distress, lethargy Eye Exam: bilateral eye: normal inspection, PERRL, EOMI, abnormal EOM Ears, Nose, Throat Exam: normal ENT inspection, moist mucous membranes Neck Exam: normal inspection, non-tender, supple, full range of motion Respiratory: normal breath sounds, lungs clear, airway intact, No chest tenderness, No respiratory distress Cardiovascular: regular rate/rhythm, normal heart sounds, normal peripheral pulses Gastrointestinal: soft, normal bowel sounds, No tenderness Pelvic Exam: not done Rectal Exam: not done Back Exam: normal inspection, normal range of motion, No CVA tenderness, No vertebral tenderness Extremity Exam: normal inspection, normal range of motion, pelvis stable Mental Status: oriented x 3, cooperative, 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 No acute ischemia) Ordered Tests: Active Orders 24 hr Category Date Time Status EKG-ER Only STAT Care 04/01/25 19:06 Active IV Insertion STAT Care 04/01/25 19:06 Active NPO (ED) STAT Care 04/01/25 19:08 Active ABDOMEN AND PELVIS W/0 CONTRAS [CT] Stat Exams 04/01/25 19:07 Completed HEAD WITHOUT CONTRAST [CT] Stat Exams 04/01/25 19:08 Completed AMYLASE Stat Lab 04/01/25 19:12 Completed BLOOD CULTURE Stat Lab 04/01/25 19:50 Received CBC W DIFF Stat Lab 04/01/25 19:12 Completed CMP Stat Lab 04/01/25 19:12 Completed CULTURE,URINE Stat Lab 04/01/25 20:51 Received ETHYL ALCOHOL Stat Lab 04/01/25 19:45 Completed LIPASE Stat Lab 04/01/25 19:12 Completed Lactic Acid Stat Lab 04/01/25 19:06 Completed TROPONIN Q4H Lab 04/01/25 19:12 Completed TROPONIN Q4H Lab 04/01/25 23:15 Ordered TROPONIN Q4H Lab 04/02/25 03:15 Ordered TSH [TSH, 3RD Generation] Stat Lab 04/01/25 19:45 Completed UA W/RFX UR CULTURE Stat Lab 04/01/25 20:51 Completed Urine Triage Profile Stat Lab 04/01/25 20:51 Completed Medication Summary Discontinued Medications Generic Name Dose Route Start Last Admin Trade Name Freq PRN Reason Stop Dose Admin Sodium Chloride 1,000 mls @ 999 mls/hr 04/01/25 19:06 04/01/25 20:33 Sodium Chloride 0.9% 1000 Ml IV 04/01/25 20:06 Infused .Q1H1M STA Infusion Sodium Chloride Confirm 04/01/25 19:11 Sodium Chloride 0.9% 1000 Ml Administered 04/01/25 19:12 Dose 1,000 mls @ ud .ROUTE .STK-MED ONE Lab/Rad Data: Laboratory Result Diagrams 04/01/25 19:12 04/01/25 19:12 Laboratory Results 04/01/25 04/01/2525 Range/Units 20:51 20:51 19:45 WBC (3.98-10.04) x10^3/uL RBC (3.93-5.22) x10^6/uL Hgb (11.2-15.7) g/dL Hct (34.1-44.9) % MCV (79.4-94.8) fL MCH (25.6-32.2) pg MCHC (32.2-35.5) g/dL RDW (11.7-14.4) % Plt Count (182-369) x10^3/uL MPV (9.4-12.3) fL Gran % (34.0-71.1) % Immature Gran % (Auto) (0.001-0.429) % Nucleat RBC Rel Count (0.00-0.2) % Eos # (Auto) (0.04-0.36) x10^3/uL Immature Gran # (Auto) (0.001-0.031) x10^3u/L Absolute Lymphs (auto) (1.18-3.74) x10^3/uL Absolute Monos (auto) (0.24-0.86) x10^3/uL Absolute Nucleated RBC (0.00-0.012) x10^3u/L Lymphocytes % (19.3-51.7) % Monocytes % (4.7-12.5) % Eosinophils % (0.7-5.8) % Basophils % (0.1-1.2) % Absolute Granulocytes (1.56-6.13) x10^3/uL Basophils # (0.01-0.08) x10^3/uL Sodium (135-145) mmol/L Potassium (3.5-5.1) mmol/L Chloride (98-107) mmol/L Carbon Dioxide (22-30) mmol/L Anion Gap (5-15) MEQ/L BUN (7-17) mg/dL Creatinine (0.52-1.04) mg/dL Estimated GFR ML/MIN Glucose (74-106) mg/dL Lactic Acid (0.4-2.0) Calcium (8.4-10.2) mg/dL Total Bilirubin (0.2-1.3) mg/dL AST (14-36) U/L ALT (0-35) U/L Alkaline Phosphatase (38-126) U/L Ammonia (9-30) umol/L Troponin I (0.000-0.033) ng/mL Serum Total Protein (6.3-8.2) g/dL Albumin (3.5-5.0) g/dL Amylase (30-110) U/L Lipase (23-300) U/L Free T4 (0.78-2.19) ng/dL TSH 3rd Generation (0.470-4.680) mIU/L Urine Color Yellow (Yellow) Urine Appearance Clear (Clear) Urine pH 5.5 (4.6-8.0) Ur Specific [place] 1.020 (1.005-1.030) Urine Protein Negative (Negative) Urine Glucose (UA) >=1000 A (Negative) mg/dL Urine Ketones Negative (Negative) Urine Blood Negative (Negative) Urine Nitrite Negative (Negative) Urine Bilirubin Negative (Negative) Urine Urobilinogen 1.0 A (0.2) mg/dL Ur Leukocyte Esterase Negative (Negative) U Hyaline Cast (Auto) NONE SEEN (0-2) /LPF Urine Microscopic RBC 0-2 (0-5) /HPF Urine Microscopic WBC 0-2 (0-5) /HPF Ur Epithelial Cells None Seen (None Seen) /HPF Urine Bacteria None Seen (None Seen) /HPF Urine Culture Reflexed NO (NO) Urine Opiates Level NEGATIVE (NEGATIVE) Ur Methadone NEGATIVE (NEGATIVE) Urine Barbiturates NEGATIVE (NEGATIVE) Ur Phencyclidine (PCP) NEGATIVE (NEGATIVE) Urine Amphetamine NEGATIVE (NEGATIVE) U Benzodiazepine Level POSITIVE A (NEGATIVE) Urine Cocaine NEGATIVE (NEGATIVE) Urine Marijuana (THC) POSITIVE A (NEGATIVE) Ethyl Alcohol < 10 (0-10) mg/dL 04/01/25 04/01/25 04/01/25 Range/Units 19:45 19:45 19:45 WBC (3.98-10.04) x10^3/uL RBC (3.93-5.22) x10^6/uL Hgb (11.2-15.7) g/dL Hct (34.1-44.9) % MCV (79.4-94.8) fL MCH (25.6-32.2) pg MCHC (32.2-35.5) g/dL RDW (11.7-14.4) % Plt Count (182-369) x10^3/uL MPV (9.4-12.3) fL Gran % (34.0-71.1) % Immature Gran % (Auto) (0.001-0.429) % Nucleat RBC Rel Count (0.00-0.2) % Eos # (Auto) (0.04-0.36) x10^3/uL Immature Gran # (Auto) (0.001-0.031) x10^3u/L Absolute Lymphs (auto) (1.18-3.74) x10^3/uL Absolute Monos (auto) (0.24-0.86) x10^3/uL Absolute Nucleated RBC (0.00-0.012) x10^3u/L Lymphocytes % (19.3-51.7) % Monocytes % (4.7-12.5) % Eosinophils % (0.7-5.8) % Basophils % (0.1-1.2) % Absolute Granulocytes (1.56-6.13) x10^3/uL Basophils # (0.01-0.08) x10^3/uL Sodium (135-145) mmol/L Potassium (3.5-5.1) mmol/L Chloride (98-107) mmol/L Carbon Dioxide (22-30) mmol/L Anion Gap (5-15) MEQ/L BUN (7-17) mg/dL Creatinine (0.52-1.04) mg/dL Estimated GFR ML/MIN Glucose (74-106) mg/dL Lactic Acid (0.4-2.0) Calcium (8.4-10.2) mg/dL Total Bilirubin (0.2-1.3) mg/dL AST (14-36) U/L ALT (0-35) U/L Alkaline Phosphatase (38-126) U/L Ammonia < 9 L (9-30) umol/L Troponin I (0.000-0.033) ng/mL Serum Total Protein (6.3-8.2) g/dL Albumin (3.5-5.0) g/dL Amylase (30-110) U/L Lipase (23-300) U/L Free T4 1.72 (0.78-2.19) ng/dL TSH 3rd Generation < 0.015 L (0.470-4.680) mIU/L Urine Color (Yellow) Urine Appearance (Clear) Urine pH (4.6-8.0) Ur Specific [place] (1.005-1.030) Urine Protein (Negative) Urine Glucose (UA) (Negative) mg/dL Urine Ketones (Negative) Urine Blood (Negative) Urine Nitrite (Negative) Urine Bilirubin (Negative) Urine Urobilinogen (0.2) mg/dL Ur Leukocyte Esterase (Negative) U Hyaline Cast (Auto) (0-2) /LPF Urine Microscopic RBC (0-5) /HPF Urine Microscopic WBC (0-5) /HPF Ur Epithelial Cells (None Seen) /HPF Urine Bacteria (None Seen) /HPF Urine Culture Reflexed (NO) Urine Opiates Level (NEGATIVE) Ur Methadone (NEGATIVE) Urine Barbiturates (NEGATIVE) Ur Phencyclidine (PCP) (NEGATIVE) Urine Amphetamine (NEGATIVE) U Benzodiazepine Level (NEGATIVE) Urine Cocaine (NEGATIVE) Urine Marijuana (THC) (NEGATIVE) Ethyl Alcohol (0-10) mg/dL 04/01/25 04/01/25 04/01/25 Range/Units 19:12 19:12 19:12 WBC 7.2 (3.98-10.04) x10^3/uL RBC 4.47 (3.93-5.22) x10^6/uL Hgb 11.1 L (11.2-15.7) g/dL Hct 36.6 (34.1-44.9) % MCV 81.9 (79.4-94.8) fL MCH 24.8 L (25.6-32.2) pg MCHC 30.3 L (32.2-35.5) g/dL RDW 13.2 (11.7-14.4) % Plt Count 191 (182-369) x10^3/uL MPV 9.1 L (9.4-12.3) fL Gran % 57.3 (34.0-71.1) % Immature Gran % (Auto) 0.4 (0.001-0.429) % Nucleat RBC Rel Count 0.0 (0.00-0.2) % Eos # (Auto) 0.15 (0.04-0.36) x10^3/uL Immature Gran # (Auto) 0.03 (0.001-0.031) x10^3u/L Absolute Lymphs (auto) 2.20 (1.18-3.74) x10^3/uL Absolute Monos (auto) 0.66 (0.24-0.86) x10^3/uL Absolute Nucleated RBC 0.00 (0.00-0.012) x10^3u/L Lymphocytes % 30.5 (19.3-51.7) % Monocytes % 9.1 (4.7-12.5) % Eosinophils % 2.1 (0.7-5.8) % Basophils % 0.6 (0.1-1.2) % Absolute Granulocytes 4.14 (1.56-6.13) x10^3/uL Basophils # 0.04 (0.01-0.08) x10^3/uL Sodium 137 (135-145) mmol/L Potassium 3.8 (3.5-5.1) mmol/L Chloride 105 (98-107) mmol/L Carbon Dioxide 26 (22-30) mmol/L Anion Gap 10.4 (5-15) MEQ/L BUN 10 (7-17) mg/dL Creatinine 1.03 (0.52-1.04) mg/dL Estimated GFR 61.5 ML/MIN Glucose 109 H (74-106) mg/dL Lactic Acid (0.4-2.0) Calcium 8.9 (8.4-10.2) mg/dL Total Bilirubin 0.40 (0.2-1.3) mg/dL AST 35 (14-36) U/L ALT 20 (0-35) U/L Alkaline Phosphatase 104 (38-126) U/L Ammonia (9-30) umol/L Troponin I < 0.012 (0.000-0.033) ng/mL Serum Total Protein 6.9 (6.3-8.2) g/dL Albumin 4.1 (3.5-5.0) g/dL Amylase 71 (30-110) U/L Lipase 98 (23-300) U/L Free T4 (0.78-2.19) ng/dL TSH 3rd Generation (0.470-4.680) mIU/L Urine Color (Yellow) Urine Appearance (Clear) Urine pH (4.6-8.0) Ur Specific [place] (1.005-1.030) Urine Protein (Negative) Urine Glucose (UA) (Negative) mg/dL Urine Ketones (Negative) Urine Blood (Negative) Urine Nitrite (Negative) Urine Bilirubin (Negative) Urine Urobilinogen (0.2) mg/dL Ur Leukocyte Esterase (Negative) U Hyaline Cast (Auto) (0-2) /LPF Urine Microscopic RBC (0-5) /HPF Urine Microscopic WBC (0-5) /HPF Ur Epithelial Cells (None Seen) /HPF Urine Bacteria (None Seen) /HPF Urine Culture Reflexed (NO) Urine Opiates Level (NEGATIVE) Ur Methadone (NEGATIVE) Urine Barbiturates (NEGATIVE) Ur Phencyclidine (PCP) (NEGATIVE) Urine Amphetamine (NEGATIVE) U Benzodiazepine Level (NEGATIVE) Urine Cocaine (NEGATIVE) Urine Marijuana (THC) (NEGATIVE) Ethyl Alcohol (0-10) mg/dL 04/01/25 Range/Units 19:06 WBC (3.98-10.04) x10^3/uL RBC (3.93-5.22) x10^6/uL Hgb (11.2-15.7) g/dL Hct (34.1-44.9) % MCV (79.4-94.8) fL MCH (25.6-32.2) pg MCHC (32.2-35.5) g/dL RDW (11.7-14.4) % Plt Count (182-369) x10^3/uL MPV (9.4-12.3) fL Gran % (34.0-71.1) % Immature Gran % (Auto) (0.001-0.429) % Nucleat RBC Rel Count (0.00-0.2) % Eos # (Auto) (0.04-0.36) x10^3/uL Immature Gran # (Auto) (0.001-0.031) x10^3u/L Absolute Lymphs (auto) (1.18-3.74) x10^3/uL Absolute Monos (auto) (0.24-0.86) x10^3/uL Absolute Nucleated RBC (0.00-0.012) x10^3u/L Lymphocytes % (19.3-51.7) % Monocytes % (4.7-12.5) % Eosinophils % (0.7-5.8) % Basophils % (0.1-1.2) % Absolute Granulocytes (1.56-6.13) x10^3/uL Basophils # (0.01-0.08) x10^3/uL Sodium (135-145) mmol/L Potassium (3.5-5.1) mmol/L Chloride (98-107) mmol/L Carbon Dioxide (22-30) mmol/L Anion Gap (5-15) MEQ/L BUN (7-17) mg/dL Creatinine (0.52-1.04) mg/dL Estimated GFR ML/MIN Glucose (74-106) mg/dL Lactic Acid 1.7 (0.4-2.0) Calcium (8.4-10.2) mg/dL Total Bilirubin (0.2-1.3) mg/dL AST (14-36) U/L ALT (0-35) U/L Alkaline Phosphatase (38-126) U/L Ammonia (9-30) umol/L Troponin I (0.000-0.033) ng/mL Serum Total Protein (6.3-8.2) g/dL Albumin (3.5-5.0) g/dL Amylase (30-110) U/L Lipase (23-300) U/L Free T4 (0.78-2.19) ng/dL TSH 3rd Generation (0.470-4.680) mIU/L Urine Color (Yellow) Urine Appearance (Clear) Urine pH (4.6-8.0) Ur Specific [place] (1.005-1.030) Urine Protein (Negative) Urine Glucose (UA) (Negative) mg/dL Urine Ketones (Negative) Urine Blood (Negative) Urine Nitrite (Negative) Urine Bilirubin (Negative) Urine Urobilinogen (0.2) mg/dL Ur Leukocyte Esterase (Negative) U Hyaline Cast (Auto) (0-2) /LPF Urine Microscopic RBC (0-5) /HPF Urine Microscopic WBC (0-5) /HPF Ur Epithelial Cells (None Seen) /HPF Urine Bacteria (None Seen) /HPF Urine Culture Reflexed (NO) Urine Opiates Level (NEGATIVE) Ur Methadone (NEGATIVE) Urine Barbiturates (NEGATIVE) Ur Phencyclidine (PCP) (NEGATIVE) Urine Amphetamine (NEGATIVE) U Benzodiazepine Level (NEGATIVE) Urine Cocaine (NEGATIVE) Urine Marijuana (THC) (NEGATIVE) Ethyl Alcohol (0-10) mg/dL - Progress Progress Note: 04/01/25 19:59 My medical decision making and the assignment of moderate to high complexity of this patient's medical issue today is based on review of the patient's past medical history, review the patient's medication list, reviewed patient drug allergy list, history present illness and physical findings on examination. The workup in this patient includes placement of an intravenous line, infusion of normal saline solution, twelve-lead EKG, troponin level, CBC, CMP, magnesium level, urine drug triage, urinalysis, ethyl alcohol level, free T4, TSH, ammonia level, CT scan of head and CT scan of abdomen pelvis, both without contrast. Differential diagnosis includes but is not limited to anxiety/stress, illicit drug use, alcohol intoxication, thyroid abnormalities, electrolyte abnormalities, urinary tract infection, dehydration, acute intracranial abnormality, acute intra-abdominal/pelvic abnormality 04/01/25 21:13 The urine studies are pending. I interpreted the results of the laboratory workup that have returned. The results show subclinical hyperthyroidism with a normal free T4 and a significantly low TSH level. Other blood work study results do not show any acute, emergent medical issue. The following CT scans were performed without contrast and were interpreted by the radiologist: CT scan of the head shows no acute abnormality. There are senile changes present with chronic microvascular ischemic changes. Bilateral basal ganglionic small old lacunar infarcts. CT scan of the abdomen pelvis shows transverse colon with questionable mild form of chronic colitis. There is also seen in the right posterior lower lung reticulonodular densities. Bronchiolitis versus endobronchial infection. There is evidence of mild sigmoid diverticulosis without diverticulitis. 04/01/25 22:04 Patient reexamined. She has no chest pain. She has no abdominal pain. She has no shortness of breath. She is completely neurologically intact. She said the last time she felt like this her blood sugar was very low. It may have been that before she arrived. However she did eat candy and drink a Coke/Pepsi prior to her arrival. She is hemodynamically and medically safe to be discharged to home. The urinalysis shows no dehydration or infection. Counseled pt/family regarding: lab results, diagnosis, rad results Medical Desision Making - Independent Historian Additional History obtained from: Family - Diagnostic Testing Diagnostic test were ordered, analyzed, and reviewed by me: Yes Radiological Interpretation: Reviewed by me, Teleradiologist Report - Risk of complications Low Risk: Low risk of morbidity from additional dx testing or treatment - Departure Departure Disposition: Home Clinical Impression: Lethargy, Hypoglycemia Condition: Stable Critical Care Time: No Referrals: ESTEVAN MIMS [Primary Care Provider, [facility]] - Follow up/PCP as directed Additional Instructions: Drink plenty of fluids. Monitor your blood sugar closely. Resume your diabetic diet. Take your medications as prescribed. Call your primary care provider tomorrow, 04/02/2025, to make arrangements for follow-up appointment for further evaluation and management.
[2025-04-01 19:15] LABS: BASOPHIL % 0.6 % (0.1-1.2); Basophil (Absolute #) 0.04 x10^3/uL (0.01-0.08); Eosinophil (Absolute #) 0.15 x10^3/uL (0.04-0.36); Hematocrit 36.6 % (34.1-44.9); Hemoglobin 11.1 g/dL (11.2-15.7); IMMATURE GRAN # 0.03 x10^3u/L (0.001-0.031); IMMATURE GRAN % 0.4 % (0.001-0.429); Lymphocyte (Absolute #) 2.20 x10^3/uL (1.18-3.74); Mean Corpuscular Hemoglobin 24.8 pg (25.6-32.2); Mean Corpuscular Hgb Concent. 30.3 g/dL (32.2-35.5); Monocyte (Absolute #) 0.66 x10^3/uL (0.24-0.86); NUCLEATED RBC # 0.00 x10^3u/L (0.00-0.012); NUCLEATED RBC % 0.0 % (0.00-0.2); Platelet Count 191 x10^3/uL (182-369); Red Blood Count 4.47 x10^6/uL (3.93-5.22); White Blood Count 7.2 x10^3/uL (3.98-10.04)
[2025-04-01 19:22] LABS: Calcium 8.9 mg/dL (8.4-10.2); Carbon Dioxide 26.0 mmol/L (22-30); Creatinine 1 1.03 mg/dL (0.52-1.04); EST GLOMERULAR FILTRATION RATE 61.5 ML/MIN; Glucose 109.0 mg/dL (74-106); Potassium 3.8 mmol/L (3.5-5.1); SGOT/AST 35.0 U/L (14-36); SGPT/ALT 20.0 U/L (0-35); Total Protein 6.9 g/dL (6.3-8.2)
--- NOTE | 2025-04-01 20:35 | XRAY ---
CLINICAL HISTORY: RUQ ABD pain COMPARISON: 04/07/2023 CT TECHNIQUE: Non-contrast CT of the abdomen and pelvis was performed, with the following protocol: axial images, and reconstructed coronal and sagittal images. No intravenous contrast was administered. One of the following dose reduction techniques was utilized for this exam: automated exposure control, adjustment of the mA and/or kV according to patient size, and use of iterative reconstruction. DLP: 608.73 mGy.cm FINDINGS: Abdomen: Liver: The liver is normal in size, shape, and density. No focal lesions, cysts, or masses are identified. Gallbladder and Biliary System: The gallbladder is surgically removed. Pancreas: The pancreatic head, body, and tail are visualized and appear normal in size and density. No pancreatic masses or calcifications are noted. Spleen: There is mild splenomegaly, measuring 14 cm. No splenic lesions or masses are identified. Kidneys and Adrenal Glands: Both kidneys are normal in size, shape, and position. Cortical thickness is within normal limits. No renal calculi or hydronephrosis are present. The adrenal glands are unremarkable. Appendix: There are no signs of acute appendicitis. Pelvis: Urinary Bladder: The urinary bladder is normal in contour and wall thickness. No intraluminal lesions are present. A small focus of intraluminal gas is noted within the urinary bladder. Uterus: The uterus is normal in size and contour. No masses or abnormal thickening are present. Ovaries: The ovaries are not well visualized, but no gross abnormalities are noted. Vagina: The vagina is normal in contour and wall thickness. Cervix: There is no evidence of mass or abnormal thickening. Peritoneal and Retroperitoneal Structures: No free fluid or abnormal fluid collections are identified within the abdomen or pelvis. No lymphadenopathy is noted. Bowel: There is minimal submucosal fat noted within the transverse colon, suggesting a possible mild form of chronic colitis. Mild sigmoid diverticulosis is present, with no signs of acute diverticulitis. There is no evidence of bowel obstruction. Bones and Soft Tissues: The pelvic bones and soft tissues are unremarkable. No fractures or abnormal masses are identified. Atherosclerotic changes are present in the aorta and iliac vessels. Faint, small reticulonodular densities are noted at the posterior right lower lung lobe, which could represent bronchiolitis versus endobronchial infection. IMPRESSION: 1. Minimal submucosal fat is noted within the transverse colon, suggesting a possible mild form of chronic colitis. Stable.A small focus of intraluminal gas is noted within the urinary bladder; correlation with patient prior intervention is advised. New. 2. Faint, small reticulonodular densities are noted at the posterior right lower lung lobe, which could represent bronchiolitis versus endobronchial infection. Clinical correlation and dedicated study are advised if clinically indicated. New. 3. Mild sigmoid diverticulosis, with no signs of acute diverticulitis. Stable. 4. Mild splenomegaly, measuring 14 cm. Stable. Electronically Signed by: Paul John MD. (04/01/2025 20:33:46 EST)
--- NOTE | 2025-04-01 20:35 | XRAY ---
CLINICAL HISTORY: Lethargic COMPARISON: none TECHNIQUE: Axial non-contrast CT scan of the brain was performed from the skull base to the high parietal region. One of the following dose reduction techniques was utilized for this exam: Automated exposure control, adjustment of the mA and/or kV according to patient size, or use of iterative reconstruction. DLP: 1016.25 mGy.cm FINDINGS: Brain Parenchyma: There is no evidence of acute infarct, hemorrhage, or mass effect. There are exaggerated periventricular white matter hypodensities suggesting chronic microvascular ischemic changes. Bilateral basal ganglionic small old lacunar infarcts are noted, larger on the right side. Ventricular System: The ventricular system and extra-axial CSF spaces are prominent, suggesting senile changes. There is no evidence of hydrocephalus or ventricular enlargement. Subarachnoid Spaces: The sulci and cisterns are normal. There is no evidence of subarachnoid hemorrhage or extra-axial fluid collections. Cerebellum and Brainstem: There are no masses, lesions, or areas of abnormal density. Orbits: The globes, optic nerves, and extraocular muscles have normal appearances. There is no evidence of orbital masses or abnormal density. Sinuses: The paranasal sinuses are clear. There is no evidence of sinusitis or mucosal thickening. Mastoid Air Cells: The mastoid air cells are clear. There is no evidence of mastoiditis. Skull: The skull demonstrates normal morphology. IMPRESSION: 1. There is no acute intracranial abnormality. 2. Senile changes are present with chronic microvascular ischemic changes. 3. There are bilateral basal ganglionic small old lacunar infarcts. Electronically Signed by: Paul John MD. (04/01/2025 20:34:31 EST)
[2025-04-01 21:16] VITALS: PULSE 75
[2025-04-01 21:18] LABS: Glucose, Urine >=1000 mg/dL (Negative); Protein,Urine Dip Negative (Negative); RBC 0-2 /HPF (0-5); WBC 0-2 /HPF (0-5)
[2025-04-01 21:32] LABS: Amphetamine,Urine NEGATIVE (NEGATIVE); Barbiturate,Urine NEGATIVE (NEGATIVE); Benzodiazepine,Urine POSITIVE (NEGATIVE); Cocaine,Urine NEGATIVE (NEGATIVE); Methadone,Urine NEGATIVE (NEGATIVE); Opiate,Urine NEGATIVE (NEGATIVE); PCP,Urine NEGATIVE (NEGATIVE); THC,Urine POSITIVE (NEGATIVE)
[2025-04-01 22:05] VITALS: BP 125/61; RESP 13
[2025-04-01 22:06] VITALS: O2SAT 100
== END 2025-04-01 22:15 | disposition home or self-care (01) ==
LOC: ED 18:20
DX: E11.649 Type 2 diabetes mellitus with hypoglycemia without coma (principal); R53.83 Other fatigue; R10.11 Right upper quadrant pain; Z79.84 Long term (current) use of oral hypoglycemic drugs; Z79.899 Other long term (current) drug therapy